=== PATIENT | male | born 1960 | race Caucasian/White ===

== ENCOUNTER 2017-11-04 08:40 | Emergency (ER) | payer OTHER ==
[2017-11-04 08:48] VITALS: BP 122/70; PULSE 70; TEMP 97.9; BMI 17.9
[2017-11-04] MEDS ORDERED: ONDANSETRON *ODT* 4 MG TABLET SL ONE (09:22)
[2017-11-04] MEDS ORDERED: ONDANSETRON *ODT* 4 MG TABLET ONE (09:27)
--- NOTE | 2017-11-04 10:20 | PDOC ---
History of Present Illness - General Chief Complaint: Respiratory Stated Complaint: HEADACHE, DIARRHEA Time Seen by Provider: 11/04/17 09:13 History Source: Patient Exam Limitations: No Limitations - History of Present Illness Initial Comments: 11/04/17 10:20 Patient is a 57-year-old male, no significant medical history currently on no medication presents for evaluation of generalized bodyaches, sore throat, fever , vomiting and diarrhea for 4 days. Patient reports getting a flu shot on and Wednesday started to have symptoms. Took Advil this morning. Afebrile upon arrival. Past Medical History: [Denies]. Allergies: No known allergies Medications: [None] Family History: Non-contributory Social History: Denies smoking, alcohol use, or IVDU Vital signs on arrival are [notable for pulse of 70] Review of Systems GENERAL/CONSTITUTIONAL: [Fever and bodyaches. No weakness. No weight change.] HEAD, EYES, EARS, NOSE AND THROAT: [No change in vision. No ear pain or discharge. Sore throat. ] CARDIOVASCULAR: [No chest pain or shortness of breath.] RESPIRATORY: [No cough, wheezing, or hemoptysis.] GASTROINTESTINAL: Nausea and vomiting, diarrhea no constipation. No rectal bleeding.] GENITOURINARY: [No dysuria, frequency, or change in urination.] MUSCULOSKELETAL: [No joint or muscle swelling or pain. No neck or back pain.] SKIN : [No rash or easy bruising.] NEUROLOGIC: [No headache, vertigo, loss of consciousness, or loss of sensation.] PSYCHIATRIC: [No depression or anxiety.] ENDOCRINE: [No increased thirst. No abnormal weight change.] HEMATOLOGIC/LYMPHATIC: [No anemia, easy bleeding, or history of blood clots.] ALLERGIC/IMMUNOLOGIC: [No hives or skin allergy. No latex allergy.] Physical Exam: GENERAL: [The patient is awake, alert, and fully oriented, in no acute distress. ] HEAD: [Normal with no signs of trauma.] EYES: [Pupils equal, round and reactive to light, extraocular movements intact, sclera anicteric, conjunctiva clear.] ENT: [Ears normal, nares patent, oropharynx clear without exudates. Moist mucous membranes. No uvula deviation] NECK: [Normal range of motion, supple without lymphadenopathy, JVD, or masses.] LUNGS: [Breath sounds equal, clear to auscultation bilaterally. No wheezes, and no crackles.] HEART: [Regular rate and rhythm, normal S1 and S2 without murmur, rub or gallop. ] ABDOMEN: [Soft, nontender, normoactive bowel sounds. No guarding, no rebound. No masses. No bruising or abrasions] MUSCULOSKELETAL: [Normal range of motion, no edema. No clubbing or cyanosis. No cords, erythema, or tenderness. No CVA Tenderness with fist.] NEUROLOGICAL: [Cranial nerves II through XII grossly intact. Normal speech, normal gait.] SKIN: [Warm, Dry, normal turgor, no rashes or lesions noted.] 11/04/17 10:21 Past History - Past Medical History Allergies/Adverse Reactions: Allergies Allergy/AdvReac Type Severity Reaction Status Date / Time No Known Drug Allergies Allergy Verified 11/04/17 08:45 Home Medications: Ambulatory Orders Albuterol Sulfate Inhaler - [Ventolin HFA Inhaler -] 1 inh PO DAILY PRN Quetiapine Fumarate [Seroquel -] 200 mg PO HS 10/05/13 Oxycodone HCl 1 tab PO PRN PRN 05/04/16 Ondansetron [Zofran Odt -] 4 mg SL TID #14 od.tablet 11/04/17 Asthma: Yes (NO RECENT ATTACK) COPD: No GI Disorders: Yes (hepatitis C) Disorders: Yes (kidney stones) Kidney Stones: Yes Liver Disease: Yes (HEP C) Psychiatric Problems: Yes (DEPRESSION) - Immunization History Immunization Up to Date: Yes - Suicide/Smoking/Psychosocial Hx Smoking Status: Yes Smoking History: Current every day smoker Years of Tobacco Use: 40 Have you smoked in the past 12 months: Yes Number of Cigarettes Smoked Daily: 10 Information on smoking cessation initiated: Yes 'Breaking Loose' booklet given: 11/04/17 Hx Alcohol Use: No Drug/Substance Use Hx: Yes Substance Use Type: Marijuana Hx Substance Use Treatment: Yes *Physical Exam - Vital Signs Last Vital Signs Temp Pulse Resp BP Pulse Ox 97.9 F 70 18 122/70 97 11/04/17 08:45 11/04/17 08:45 11/04/17 08:45 11/04/17 08:45 11/04/17 08:45 ED Treatment Course - Medications Given in the ED: ED Medications Discontinued Medications Generic Name Dose Route Start Last Admin Trade Name Sofie PRN Reason Stop Dose Admin Ondansetron HCl 4 mg 11/04/17 09:22 11/04/17 09:33 Zofran Odt - SL 11/04/17 09:23 4 mg ONCE ONE Administration Medical Decision Making - Medical Decision Making 11/04/17 10:22 A/P: Patient with influenza-type illness. Rapid strep sent, Zofran given with good result patient is eating and drinking. 11/04/17 10:27 Rapid strep is negative we'll DC patient home, supportive care, increase fluid intake, if unable to eat and drink chest pain, dizziness, fainting, or any other concerns return to ER. *DC/Admit/Observation/Transfer Diagnosis at time of Disposition: Influenza-like illness - Discharge Dispostion Disposition: HOME Condition at time of disposition: Stable Admit: No - Prescriptions Prescriptions: Ondansetron [Zofran Odt -] 4 mg SL TID #14 od.tablet - Referrals Referrals: Mayo Gonzalez MD [Staff Physician] - - Patient Instructions Additional Instructions: You have been diagnosed with influenza-like illness. Please take the medication as directed for nausea. You are contagious. Please attempt to avoid contact of multiple individuals as this will cause the infection to spread. Return to emergency room if shortness of breath, wheezing, fever greater than 101, chest pain, or fainting occurs. If symptoms persist in 3 days please follow-up with primary care doctor. - Post Discharge Activity Forms/Work/School Notes: Back to Work
== END 2017-11-04 10:32 | disposition home or self-care (01) ==
LOC: JERFT 08:40
DX: J11.1 Influenza due to unidentified influenza virus with other respiratory manifestations (principal); Z87.442 Personal history of urinary calculi; Z87.09 Personal history of other diseases of the respiratory system
CPT/HCPCS: 87070; 87430; 99281-25

== ENCOUNTER 2018-11-19 10:52 | Emergency (ER) | payer OTHER ==
[2018-11-19 11:05] VITALS: BMI 23.3
--- NOTE | 2018-11-19 12:08 | PDOC ---
History of Present Illness - General Chief Complaint: Pain, Acute Stated Complaint: BACK PAIN Time Seen by Provider: 11/19/18 11:52 - History of Present Illness Initial Comments: The pt is a 58M w/ a history of HCV, chronic back pain, kidney stones who presents for evaluation of 1wk of back pain, dysuria, and fevers. He reports that his pain feels similar to previous occurrences of kidney stones in the past. His pain is intermittent mid-lower back, b/l, will radiate to his flanks ( R > L), and is associated with subjective fevers and dysuria. He endorses associated NBNB vomiting x2 yesterday and x1 today. Denies diarrhea, blood in stool, abdominal pain, chest pain, trouble breathing. Of note pt reports receiving injections in his back for chronic pain, last was 11/19/18 12:08 Past History - Past Medical History Allergies/Adverse Reactions: Allergies Allergy/AdvReac Type Severity Reaction Status Date / Time No Known Drug Allergies Allergy Verified 11/19/18 11:02 Home Medications: Ambulatory Orders Albuterol Sulfate Inhaler - [Ventolin HFA Inhaler -] 1 inh PO DAILY PRN Oxycodone HCl 1 tab PO PRN PRN 05/04/16 Asthma: Yes (NO RECENT ATTACK) COPD: No GI Disorders: Yes (hepatitis C) Disorders: Yes (kidney stones) Kidney Stones: Yes Liver Disease: Yes (HEP C) Psychiatric Problems: Yes (DEPRESSION) - Immunization History Immunization Up to Date: Yes - Suicide/Smoking/Psychosocial Hx Smoking Status: Yes Smoking History: Current every day smoker Years of Tobacco Use: 40 Have you smoked in the past 12 months: Yes Number of Cigarettes Smoked Daily: 10 Information on smoking cessation initiated: No 'Breaking Loose' booklet given: 11/04/17 Hx Alcohol Use: No Drug/Substance Use Hx: No Substance Use Type: Marijuana Hx Substance Use Treatment: Yes Review of Systems - Review of Systems Able to Perform ROS?: Yes Comments:: GENERAL/CONSTITUTIONAL: No weakness HEAD, EYES, EARS, NOSE AND THROAT: No change in vision. No sore throat CARDIOVASCULAR: No chest pain or shortness of breath RESPIRATORY: +cough; denies hemoptysis GASTROINTESTINAL: No nausea, vomiting, diarrhea or constipation GENITOURINARY: +dysuria; denies hematuria, frequency, or change in urination MUSCULOSKELETAL: No joint or muscle swelling or pain SKIN: No rash NEUROLOGIC: No headache, vertigo, loss of consciousness, or change in strength/ sensation ENDOCRINE: No increased thirst. No abnormal weight change HEMATOLOGIC/LYMPHATIC: No anemia, easy bleeding, or history of blood clots ALLERGIC/IMMUNOLOGIC: No hives or skin allergy 11/19/18 12:29 Is the patient limited Dominican proficient: No *Physical Exam - Vital Signs Last Vital Signs Temp Pulse Resp BP Pulse Ox 98.3 F 83 18 90/64 96 11/19/18 11:02 11/19/18 11:02 11/19/18 11:02 11/19/18 11:02 11/19/18 11:02 - Physical Exam Comments: GENERAL: Awake, alert, and oriented to person/place/time, appears uncomfortable HEAD: No signs of trauma, normocephalic, atraumatic EYES: PERRLA, EOMI, sclera anicteric, conjunctiva clear ENT: Hearing grossly normal, nares patent, oropharynx clear without exudates. Moist mucosa LUNGS: No distress, speaks full sentences, clear to auscultation bilaterally HEART: Regular rate and rhythm, normal S1 and S2, no murmurs appreciated, peripheral pulses normal and equal bilaterally BACK: R lower back TTP ABDOMEN: Soft, nontender, normoactive bowel sounds. No guarding, no rebound EXTREMITIES: Normal inspection, Normal range of motion, no edema. No clubbing or cyanosis NEUROLOGICAL: Cranial nerves II through XII grossly intact. Normal speech, no focal sensorimotor deficits SKIN: Warm, Dry, back/neck flushed 11/19/18 12:38 Moderate Sedation - Procedure Monitoring Vital Signs: Procedure Monitoring Vital Signs Temperature 98.3 F 11/19/18 11:02 Pulse Rate 83 11/19/18 11:02 Respiratory Rate 18 11/19/18 11:02 Blood Pressure 90/64 11/19/18 11:02 O2 Sat by Pulse Oximetry (%) 96 11/19/18 11:02 ED Treatment Course - LABORATORY CBC & Chemistry Diagram: 11/19/18 12:20 11/19/18 12:20 Medical Decision Making - Medical Decision Making The pt is a 58M w/ a history of HCV and chronic back pain that presents for evaluation of 1 week of lower back pain that he reports is similar to previous episodes of nephrolithiasis but also the same as his chronic back pain ED Course CMP, CBC, UA Lytes wnl No SEBASTIAN No leukocytosis No anemia UA w/o blood or evidence of UTI Pending CT A&P 11/19/18 14:35 CT w/o evidence of acute pathology Pain likely exacerbation of chronic back pain Trigger point injection of 4cc of 2% Lidocaine performed in R lumbar paraspinal muscle 11/19/18 17:40 Pt w/ improvement in pain Plan for D/C w/ pain management f/u Discharge instructions and return precautions given Pt in agreement and verbalized understanding Dispo: home 11/19/18 18:28 *DC/Admit/Observation/Transfer Diagnosis at time of Disposition: Back pain Qualifiers: Back pain location: low back pain Chronicity: unspecified Back pain laterality : bilateral Sciatica presence: without sciatica Qualified Code(s): M54.5 - Low back pain - Discharge Dispostion Disposition: HOME Condition at time of disposition: Improved Decision to Admit order: No - Referrals Referrals: Ag Campoverde MD [Staff Physician] - - Patient Instructions Printed Discharge Instructions: DI for Low Back Pain Additional Instructions: You were seen in the Emergency Department for evaluation of back pain. Your labs , urine, and CT scan were unremarkable to for acute pathology. You were given Toradol initially for pain. You were then given a trigger point injection of Lidocaine in the right lumbar paraspinal muscle. Continue to take you medications as directed at home. Please review the handout provided with discharge. Follow up with your pain management doctor this week. Return to the Emergency Department if you develop fevers/chills, vomiting, change in sensation, change in strength, or any new/ concerning symptoms. - Post Discharge Activity
[2018-11-19] MEDS ORDERED: KETOROLAC TROMETHAMINE 15 MG/ML VIAL IVPUSH ONE (12:10)
[2018-11-19] MEDS ORDERED: KETOROLAC TROMETHAMINE 15 MG/ML VIAL ONE (12:19)
--- NOTE | 2018-11-19 12:41 | PDOC ---
Attending Attestation - Resident Resident Name: MicOttoniel monroy - ED Attending Attestation I have performed the following: I have examined & evaluated the patient, The case was reviewed & discussed with the resident, I agree w/resident's findings & plan, Exceptions are as noted - HPI HPI: 11/19/18 12:38 58y M hx of hcv, chronic back pain, kiudney stones presents with complaint of worsening back pain that feels similar to previous kidney stones, but notes it is bilateral, worsens when he walks, is intermittent and does not seem present when he is at rest. Pt notes he follows up with pain mangement, had a recent injection approx 13 days ago in the back. denies any cp, sob, numbness/tingling /weakness. He does note some dysuria and subjective fever. on exam: general: pt appears to be uncomfortable skin: hot to the touch BACK: no focal bony tenderness, induration/erythhema, stepoffs, +mild ttp on R lumbar parasimpal region. +R cva tenderness ABD: sfot nontender chest: cta b/l, no wheezing/rales heart: rrr, no mrg ddx - msk pain vs kidney stones, consider possible occult ifnection will ck labs, ua aweaiting rectal temp as pt feels warm but is afebrile at triage - Physicial Exam PE: 11/19/18 18:21 see above - Medical Decision Making 11/19/18 14:24 The patient's labs were reviewed there was no leukocytosis, CKD the patient's urine is noted for ketonuria and proteinuria. suspect ketonruia ay be secondary to dehydration not having eaten recently/ overnight will give the patient some fluids. 11/19/18 18:21 The patient was still having persistent pain that was focal, we performed a trigger point injection. Patient right paraspinal lumbar muscles were focally tender the area was cleansed using alcohol, 4 mL of 2% lidocaine was injected into the lumbar paraspinal muscle with aspiration without any signs of blood. After approximately 45 minutes the patient is feeling significantly improved. No complications noted. As the patient is feeling improved will discharge patient with pain management supportive correction.
[2018-11-19 12:42] LABS: BASO % 0.9 % (0-2.0); EOS % 0.4 % (0-4.5); HEMATOCRIT 41.8 % (35.4-49); HEMOGLOBIN 14.8 GM/dL (11.7-16.9); LYMPH % 29.7 % (8-40); MCH 32.2 pg (25.7-33.7); MCHC 35.5 g/dl (32.0-35.9); MEAN CELL VOLUME 90.5 fl (80-96); MEAN PLT VOLUME 9.1 fl (7.5-11.1); MONO % 8.4 % (3.8-10.2); NEUT % 60.6 % (42.8-82.8); PLATELET COUNT 114 K/MM3 (134-434); RBC 4.62 M/mm3 (4.00-5.60); WHITE BLOOD COUNT 5.9 K/mm3 (4.0-10.0)
[2018-11-19 13:21] LABS: ALBUMIN 3.3 g/dl (3.4-5.0); ALK PHOS 85 U/L (45-117); ANION GAP 10 MMOL/L (8-16); BILIRUBIN,TOTAL 0.5 mg/dL (0.2-1); BLOOD UREA NITROGEN 16 mg/dL (7-18); CALCIUM 7.9 mg/dL (8.5-10.1); CHLORIDE 104 mmol/L (98-107); CO2 22 mmol/L (21-32); CREATININE 0.7 mg/dL (0.55-1.3); GLUCOSE,RANDOM 91 mg/dL (74-106); POTASSIUM 3.6 mmol/L (3.5-5.1); SGOT/AST 27 U/L (15-37); SGPT/ALT 40 U/L (13-61); SODIUM 137 mmol/L (136-145); TOT PROT 6.5 g/dl (6.4-8.2)
[2018-11-19 14:05] LABS: URINE APPEARANCE SLCLOUDY; URINE BILIRUBIN NEGATIVE (<2.0 mg/dL); URINE COLOR DKYELLOW; URINE GLUCOSE (UA) NEGATIVE (NEGATIVE); URINE KETONE 1+ (NEGATIVE); URINE LEUK ESTERASE NEGATIVE (NEGATIVE); URINE NITRITE NEGATIVE (NEGATIVE); URINE PROTEIN 1+ (NEGATIVE); URINE UROBILINOGEN 4.0 E.U/dl mg/dL (0.2-1.0)
[2018-11-19] MEDS ORDERED: SODIUM CHLORIDE 0.9% 500 ML INFUS.BAG IV ONE (14:23)
[2018-11-19 14:51] LABS: EPI CELLS RARE /HPF (FEW); URINE MUCUS FEW
[2018-11-19 16:43] VITALS: BP 118/70; PULSE 69; TEMP 99
[2018-11-19] MEDS ORDERED: LIDOCAINE HCL 1%, 10 MG/ML (50 mL VIAL) SQ ONE (17:11)
== END 2018-11-19 18:38 | disposition home or self-care (01) ==
LOC: JER 10:52
PROC: 3E0333Z Introduction of Anti-inflammatory into Peripheral Vein, Percutaneous Approach (ICD-10-PCS; principal; 2018-11-19)
PROC: 3E013BZ Introduction of Anesthetic Agent into Subcutaneous Tissue, Percutaneous Approach (ICD-10-PCS; 2018-11-19)
DX: M54.5 Low back pain (principal); Z87.442 Personal history of urinary calculi; Z86.19 Personal history of other infectious and parasitic diseases; F32.9 Major depressive disorder, single episode, unspecified
CPT/HCPCS: 36415; 74177-TC; 80053; 81003; 81015; 85025; 87086; 96372; 96374; 99282-25

== ENCOUNTER 2018-12-17 09:49 | Emergency (ER) | payer OTHER ==
[2018-12-17 10:02] VITALS: BMI 25.4
[2018-12-17] MEDS ORDERED: KETOROLAC TROMETHAMINE 60 MG/2 ML VIAL IM ONE (10:19)
[2018-12-17] MEDS ORDERED: oxyCODONE HCL 5 MG TABLET PO ONE (10:19)
[2018-12-17] MEDS ORDERED: CYCLOBENZAPRINE HCL 10 MG TABLET (FP) PO ONE (10:19)
[2018-12-17] MEDS ORDERED: oxyCODONE HCL 5 MG TABLET ONE (10:25)
[2018-12-17] MEDS ORDERED: KETOROLAC TROMETHAMINE 60 MG/2 ML VIAL ONE (10:26)
[2018-12-17] MEDS ORDERED: CYCLOBENZAPRINE HCL 10 MG TABLET (FP) ONE (10:26)
--- NOTE | 2018-12-17 10:39 | PDOC ---
*Physical Exam - Vital Signs Last Vital Signs Temp Pulse Resp BP Pulse Ox 98 F 67 17 113/67 98 12/17/18 09:57 12/17/18 09:57 12/17/18 09:57 12/17/18 09:57 12/17/18 09:57 ED Treatment Course - Medications Given in the ED: ED Medications Discontinued Medications Generic Name Dose Route Start Last Admin Trade Name Freq PRN Reason Stop Dose Admin Cyclobenzaprine HCl 5 mg 12/17/18 10:19 12/17/18 10:33 Flexeril - PO 12/17/18 10:20 5 mg ONCE ONE Administration Ketorolac Tromethamine 60 mg 12/17/18 10:19 12/17/18 10:34 Toradol Injection - IM 12/17/18 10:20 60 mg ONCE ONE Administration Oxycodone HCl 10 mg 12/17/18 10:19 12/17/18 10:33 Roxicodone - PO 12/17/18 10:20 10 mg ONCE ONE Administration Medical Decision Making - Medical Decision Making 12/17/18 10:38 Pt seen by the Advanced Practice Provider under my direct supervision Ancillary studies reviewed I agree with plan as outlined by the Advanced Practice Provider MARQUISE Taylor *DC/Admit/Observation/Transfer Diagnosis at time of Disposition: Sciatic nerve pain, Lumbar disc herniation - Discharge Dispostion Disposition: HOME Condition at time of disposition: Improved - Prescriptions Prescriptions: Cyclobenzaprine HCl [Flexeril -] 5 mg PO TID PRN #12 tablet PRN Reason: Back Pain - Referrals Referrals: Juan Antonio Orellana MD, [facility] [Staff Physician] - - Patient Instructions Printed Discharge Instructions: DI for Back Pain With Sciatica Additional Instructions: Please avoid movements which trigger discomfort. Please take medication as needed for pain. Also please follow up with referred neurosurgeon - Post Discharge Activity
--- NOTE | 2018-12-17 10:43 | PDOC ---
History of Present Illness - General Chief Complaint: Back Pain Stated Complaint: BACK PAIN Time Seen by Provider: 12/17/18 09:55 History Source: Patient Exam Limitations: No Limitations - History of Present Illness Initial Comments: 12/17/18 10:43 58-year-old male with history of low back pain and hepatitis C presents with complaints of worsening low back pain causing him difficulty to ambulate since last evening. Patient states has had worsening low back pain over the past year and a half now under the care of pain management who had ordered physical therapy and have began on Wednesday which he states consisted of multiple movements including "cracking the back." Patient states within one hour after arriving home he was unable to walk to the bathroom without holding onto furniture items. Patient denies incontinence, saddle anesthesia, abdominal pain weakness or numbness of the right lower extremity. Patient states had an MRI done on December 08 which showed L4-L5 herniation along with nerve root impingement. Patient is pending a neurology consultation by Dr. Pennington in 2 weeks. Occurred: reports: yesterday Severity: reports: moderate Pain Location: reports: back, lower extremity Method of Injury: Yes: unknown Modifying Factors: improves with: None Associated Symptoms (Fall): muscle spasms, trouble walking Past History - Travel Traveled outside of the country in the last 30 days: No Close contact w/someone who was outside of country & ill: No - Past Medical History Allergies/Adverse Reactions: Allergies Allergy/AdvReac Type Severity Reaction Status Date / Time No Known Drug Allergies Allergy Verified 12/17/18 09:57 Home Medications: Ambulatory Orders Albuterol Sulfate Inhaler - [Ventolin HFA Inhaler -] 1 inh PO DAILY PRN Oxycodone HCl 10 tab PO TID PRN 05/04/16 Baclofen [Lioresal -] 10 mg PO TID 12/17/18 Cyclobenzaprine HCl [Flexeril -] 5 mg PO TID PRN #12 tablet 12/17/18 Duloxetine HCl [Cymbalta -] 20 mg PO DAILY 12/17/18 Asthma: Yes (NO RECENT ATTACK) COPD: No GI Disorders: Yes (hepatitis C) Disorders: Yes (kidney stones) Kidney Stones: Yes Liver Disease: Yes (HEP C) Psychiatric Problems: Yes (DEPRESSION) - Immunization History Immunization Up to Date: Yes - Suicide/Smoking/Psychosocial Hx Smoking Status: Yes Smoking History: Unknown if ever smoked Years of Tobacco Use: 40 Have you smoked in the past 12 months: Yes Number of Cigarettes Smoked Daily: 10 'Breaking Loose' booklet given: 11/04/17 Hx Alcohol Use: No Drug/Substance Use Hx: No Substance Use Type: Marijuana Hx Substance Use Treatment: Yes Patient Lives Alone: No Lives with/in: parents (mother) Review of Systems - Review of Systems Able to Perform ROS?: No Is the patient limited Malagasy proficient: No Constitutional: No: Symptoms Reported Respiratory: No: Symptoms reported Cardiac (ROS): No: Symptoms Reported ABD/GI: No: Symptoms Reported Musculoskeletal: Yes: Back Pain, Muscle Pain Integumentary: No: Symptoms Reported Neurological: No: Numbness, Tingling, Weakness *Physical Exam - Vital Signs Last Vital Signs Temp Pulse Resp BP Pulse Ox 98 F 67 17 113/67 98 12/17/18 09:57 12/17/18 09:57 12/17/18 09:57 12/17/18 09:57 12/17/18 09:57 - Physical Exam General Appearance: Yes: Nourished, Appropriately Dressed. No: Apparent Distress Neck: positive: Supple. negative: Tender, Decreased range of motion Respiratory/Chest: positive: Lungs Clear, Normal Breath Sounds. negative: Chest Tender, Respiratory Distress, Accessory Muscle Use Musculoskeletal: negative: CVA Tenderness, Vertebral Tenderness (no central tenderness, noted rt paraspinous tenderness at l-5 level. + rt sciatica tenderness) Extremity: positive: Normal Inspection, Normal Range of Motion Integumentary: positive: Normal Color, Warm, Moist Neurologic: positive: Motor Strength 5/5 (straight leg raise bilaterally) ED Treatment Course - Medications Given in the ED: ED Medications Discontinued Medications Generic Name Dose Route Start Last Admin Trade Name Freq PRN Reason Stop Dose Admin Cyclobenzaprine HCl 5 mg 12/17/18 10:12/17/18 10:33 Flexeril - PO 12/17/18 10:20 5 mg ONCE ONE Administration Ketorolac Tromethamine 60 mg 12/17/18 10:12/17/18 10:34 Toradol Injection - IM 12/17/18 10:20 60 mg ONCE ONE Administration Oxycodone HCl 10 mg 12/17/18 10:12/17/18 10:33 Roxicodone - PO 12/17/18 10:20 10 mg ONCE ONE Administration Medical Decision Making - Medical Decision Making 12/17/18 10:45 CC: rt low back pain x 1 year, started PT wednesday, now unable to ambulate independently wihtout extreme pain to rt buttock/ rt lower back Exam: rt sciatica and rt lumbar paraspinous tenderness, no neurofocal deficits Plan: Toradol, flexeril, and reg scheduled dose of oxy 12/17/18 11:33 Pt moderately feeling better and was able to ambulate with the canes. *DC/Admit/Observation/Transfer Diagnosis at time of Disposition: Sciatic nerve pain, Lumbar disc herniation - Discharge Dispostion Disposition: HOME Condition at time of disposition: Improved - Prescriptions Prescriptions: Cyclobenzaprine HCl [Flexeril -] 5 mg PO TID PRN #12 tablet PRN Reason: Back Pain - Referrals Referrals: Juan Antonio Orellana MD, [facility] [Staff Physician] - - Patient Instructions Printed Discharge Instructions: DI for Back Pain With Sciatica Additional Instructions: Please avoid movements which trigger discomfort. Please take medication as needed for pain. Also please follow up with referred neurosurgeon - Post Discharge Activity
[2018-12-17 12:42] VITALS: BP 115/62; PULSE 63; TEMP 97.6
== END 2018-12-17 12:42 | disposition home or self-care (01) ==
LOC: JER 09:49
PROC: 3E0233Z Introduction of Anti-inflammatory into Muscle, Percutaneous Approach (ICD-10-PCS; principal; 2018-12-17)
DX: M51.16 Intervertebral disc disorders with radiculopathy, lumbar region (principal)
CPT/HCPCS: 96372; 99282-25

== ENCOUNTER 2018-12-26 09:47 | Inpatient (IN) | payer OTHER ==
[2018-12-26] MEDS ORDERED: morphine CARPU-JECT 4 MG/1 ML DISP.SYRIN IVPUSH ONE (10:37)
[2018-12-26] MEDS ORDERED: LIDOCAINE 5% TOPICAL PATCH TP ONE (10:37)
[2018-12-26] MEDS ORDERED: KETOROLAC TROMETHAMINE 15 MG/ML VIAL IVPUSH ONE (10:37)
[2018-12-26] MEDS ORDERED: morphine SULFATE 4 MG/ML VIAL ONE (10:40)
[2018-12-26] MEDS ORDERED: LIDOCAINE 5% TOPICAL PATCH ONE (10:40)
[2018-12-26] MEDS ORDERED: KETOROLAC TROMETHAMINE 15 MG/ML VIAL ONE (10:40)
--- NOTE | 2018-12-26 10:45 | PDOC ---
History of Present Illness - General Chief Complaint: Back Pain Stated Complaint: BACK PAIN Time Seen by Provider: 12/26/18 10:04 History Source: Patient Exam Limitations: No Limitations - History of Present Illness Initial Comments: 12/26/18 10:45 HPI 58-year-old male with history of low back pain 2/2 L4-5 lumbar disc herniation with sciatica, kidney stones, hepatitis C, asthma presents with complaints of worsening low back pain causing him difficulty to ambulate x 2 months. He has had several ED visits for back pain, has been with pain management, PT and chiropractor use, without improvement. His last chiropractic manipulation on 08/24, after that has had worsening right sided lower back pain with radiation of sharp pains down his leg and difficulty ambulating. His pain specialist rxd him oxycodone 10mg PRN, which he finished taking 2 days ago. Patient admits to some difficulty walking and urinary hesitancy, but no retention, dysuria, frequency. He denies incontinence, saddle anesthesia, abdominal pain weakness or numbness of the right lower extremity. Last MRI done on December 08 which showed L4-L5 herniation along with nerve root impingement. Today He went to Dr Ovalle office today, in acute pain, referred to the ED for eval and admission, MRI imaging and planning for NSG intervention tomorrow for his lumbar disc herniation at L4-5, refractory to conservative management. Allergies: None Past Medical History: see HPI Social history: +tobacco use. Surgical history: none Meds: as documented in EMR PMD: none Review of systems Constitutional: no fevers or chills. HEENT: no headache or dizziness. No visual/hearing disturbances. CVS: no cp or syncope. Resp: no sob. Gastrointestinal: no abdominal pain, nausea or vomiting. Genitourinary: no dysuria, hematuria. +Urinary hesitancy, no retention MUSCULOSKELETAL: No joint pain and swelling. +back and buttock pain SKIN: no redness or skin changes, no discharge, no rash. No wounds. Hematologic: no easy bruising/bleeding. NEUROLOGIC: No headache, dizziness, LOC or altered mental status. No weakness, numbness or tingling. Psych: no anxiety or depression Allergic/Immunologic: no allergies All other systems reviewed and negative, or as documented in HPI. Physical exam: General: in mild distress 2/2 pain, older than stated age. HEENT: NCAT, PERRL, EOMI, clear conjunctiva, anicteric, clear oropharynx, poor dentition Neck: neck supple, FROM Resp: CTAB, normal and even respirations, no respiratory distress CVS: RRR, no murmurs, 2+ peripheral pulses throughout, no peripheral edema Abdomen: soft, NTND, no peritoneal signs. Back: normal inspection, ROM limited 2/2 pain. No midline spinal tenderness + right paravertebral and sacral TTP MSK: no edema, ARRIAGA x4, ROM intact. normal bulk and tone. +bilateral SLR present.. 1+ patellar reflexes bilaterally Neuro: alert, no focal neuro deficits. 5/5 plantar and dorsiflexion bilaterally , SILT in L1-S1 distribution. Skin: warm and well perfused, cap refill <2 sec, normal color 12/26/18 10:59 Past History - Past Medical History Allergies/Adverse Reactions: Allergies Allergy/AdvReac Type Severity Reaction Status Date / Time No Known Drug Allergies Allergy Verified 12/26/18 10:00 Home Medications: Ambulatory Orders Albuterol Sulfate Inhaler - [Ventolin HFA Inhaler -] 1 inh PO DAILY PRN Oxycodone HCl 10 tab PO TID PRN 05/04/16 Baclofen [Lioresal -] 10 mg PO TID 12/17/18 Cyclobenzaprine HCl [Flexeril -] 5 mg PO TID PRN #12 tablet 12/17/18 Duloxetine HCl [Cymbalta -] 20 mg PO DAILY 12/17/18 Asthma: Yes (NO RECENT ATTACK) COPD: No GI Disorders: Yes (hepatitis C) Disorders: Yes (kidney stones) Kidney Stones: Yes Liver Disease: Yes (HEP C) Psychiatric Problems: Yes (DEPRESSION) - Immunization History Immunization Up to Date: Yes - Suicide/Smoking/Psychosocial Hx Smoking Status: Yes Smoking History: Former smoker Years of Tobacco Use: 40 Have you smoked in the past 12 months: No Number of Cigarettes Smoked Daily: 10 Information on smoking cessation initiated: No 'Breaking Loose' booklet given: 11/04/17 Hx Alcohol Use: No Drug/Substance Use Hx: No Substance Use Type: Marijuana Hx Substance Use Treatment: Yes *Physical Exam - Vital Signs Last Vital Signs Temp Pulse Resp BP Pulse Ox 98.3 F 86 18 118/82 99 12/26/18 09:56 12/26/18 09:56 12/26/18 09:56 12/26/18 09:56 12/26/18 09:56 ED Treatment Course - LABORATORY CBC & Chemistry Diagram: 12/26/18 10:47 12/26/18 10:47 Medical Decision Making - Medical Decision Making 12/26/18 10:46 hpi as documented VS reviewed, wnl. DDx back pain: back strain, lumbago, sciatica, radiculopathy, spinal stenosis. Muscle spasm. Lumbar radiculopathy. pt does have e/o positive SLR bilaterally, c/w sciatica, but no neuro deficits or changes. Clinically doubt based on exam and clinical history: cord compression or cauda equina, however + lumbar/spinal procedures with chiropractic manipulation and known severe L4-5 disc herniation and nerve root impingement. otherwise no bowel and bladder incontinence/retention, urinary sx, neurologic deficits or changes. ED course: - txs, preop labs, ESR/CRP - wnl - analgesia, topical lido, morphine and toradol, with some improvement. - spoke with NSG, Dr Mendoza, MRI imaging protocol - possible NSG intervention tomorrow, med clearance - admit to Dr Johns, hospitalist team per request of NSG. 12/26/18 10:48 12/26/18 12:33 *DC/Admit/Observation/Transfer Diagnosis at time of Disposition: Back pain, Lumbar disc disease with radiculopathy - Discharge Dispostion Condition at time of disposition: Guarded Decision to Admit order: Yes Decision to Admit order Date/Time: 12/26/18 10:59 Decision to Admit Order Category Date Time Status Decision to Admit to Hospital Routine Admission 12/26/18 10:58 Ordered - Referrals - Patient Instructions - Post Discharge Activity
[2018-12-26 10:59] LABS: BASO % 1.4 % (0-2.0); EOS % 2.8 % (0-4.5); HEMATOCRIT 44.6 % (35.4-49); HEMOGLOBIN 15.3 GM/dL (11.7-16.9); LYMPH % 34.4 % (8-40); MCH 31.3 pg (25.7-33.7); MCHC 34.2 g/dl (32.0-35.9); MEAN CELL VOLUME 91.4 fl (80-96); MEAN PLT VOLUME 9.5 fl (7.5-11.1); MONO % 6.8 % (3.8-10.2); NEUT % 54.6 % (42.8-82.8); PLATELET COUNT 154 K/MM3 (134-434); RBC 4.88 M/mm3 (4.00-5.60); RDW 14.3 % (11.9-15.9); WHITE BLOOD COUNT 7.6 K/mm3 (4.0-10.0)
[2018-12-26 11:26] LABS: INR 1.08 (0.83-1.09); PROTHROMBIN TIME (PATIENT) 12.7 SEC (9.7-13.0)
[2018-12-26 11:34] LABS: ALBUMIN 3.7 g/dl (3.4-5.0); ALK PHOS 105 U/L (45-117); ANION GAP 4 MMOL/L (8-16); BILIRUBIN,TOTAL 0.8 mg/dL (0.2-1); BLOOD UREA NITROGEN 9 mg/dL (7-18); CHLORIDE 110 mmol/L (98-107); CO2 27 mmol/L (21-32); CREATININE 0.6 mg/dL (0.55-1.3); GLUCOSE,RANDOM 106 mg/dL (74-106); POTASSIUM 4.1 mmol/L (3.5-5.1); SGOT/AST 53 U/L (15-37); SGPT/ALT 77 U/L (13-61); SODIUM 141 mmol/L (136-145); TOT PROT 7.2 g/dl (6.4-8.2)
[2018-12-26] MEDS ORDERED: ALBUTEROL SO4 2.5/IPRATROPIUM 0.5 INH SOL 3 ML VIAL.NEB. NEB PRN (14:21)
[2018-12-26] MEDS ORDERED: oxyCODONE HCL 5 MG TABLET PO PRN ×2 (14:22→15:14)
[2018-12-26] MEDS ORDERED: CYCLOBENZAPRINE HCL 10 MG TABLET (FP) PO PRN (14:22)
[2018-12-26] MEDS ORDERED: ALBUTEROL SO4 8 GM HFA INHALER IH PRN (14:22)
[2018-12-26] MEDS ORDERED: morphine SULFATE 4 MG/ML VIAL IVPUSH PRN (14:24)
[2018-12-26] MEDS ORDERED: DICLOFENAC SODIUM PO SCH (14:30)
--- NOTE | 2018-12-26 14:46 | HP ---
CHIEF COMPLAINT: worsening low back pain PCP:none Pain mgt: Dr. Ag Guardado HISTORY OF PRESENT ILLNESS: Patient is a 58 year old male with past medical history of chronic low back pain , kidney stones, hepatitis C, and emphysema, presented to the ED due to worsening low back pain accompanied by weakness and pain with ambulating that started last month. Patient is known to have chronic low back pain, with lumbar disc herniation, and has been on disability since early . Symptoms have been controlled by pain management and physical therapy, and he has been on Oxycodone. About 1 1/2 months ago, patient woke up and suddenly experienced severe 10/10 sharp low back pain. He denies trauma or lifting heavy objects. About a week after, because of the pain, patient started to walk on his toes as stepping on his heel was painful. He has been seen in the ED multiple times for the low back pain, where pain was controlled and patient referred to neurology and neurosurgery. About 10 days ago, patient saw a chiropractor where a certain manipulation was done which resulted to a worsening of the low back pain accompanied by pain and weakness radiating down his right leg. Because of the pain, patient has been increasing his dose of oxycodone taking 5 tablets in a day. Today, he was seen by neurosurgery, who recommended admission for possible surgery tomorrow. Patient also reports shortness of breath when walking 4-5 blocks, but has been present for a long time since he was diagnosed of emphysema. He denies fever, chills, headache, dizziness, chest pain, palpitations, abdominal pain, diarrhea, bowel or bladder incontinence. 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 Patient on disability, lives with mother Family History: Mother - Breast cancer Allergies No Known Drug Allergies Allergy (Verified 12/26/18 10:00) HOME MEDICATIONS: Home Medications Medication Instructions Recorded Albuterol Sulfate Inhaler - 1 inh PO DAILY PRN 10/05/13 [Ventolin HFA Inhaler -] Oxycodone HCl 10 tab PO Q6H PRN 05/04/16 Baclofen [Lioresal -] 10 mg PO DAILY 12/17/18 Cyclobenzaprine HCl [Flexeril -] 5 mg PO TID PRN #12 tablet 12/17/18 Duloxetine HCl [Cymbalta -] 20 mg PO BID 12/17/18 Diclofenac Sodium [Diclofenac 1 tab PO DAILY 12/26/18 Sodium ER] REVIEW OF SYSTEMS CONSTITUTIONAL: Absent: fever, chills, diaphoresis, generalized weakness, malaise, loss of appetite, weight change HEENT: Absent: rhinorrhea, nasal congestion, throat pain, throat swelling, difficulty swallowing, mouth swelling, ear pain, eye pain, visual changes CARDIOVASCULAR: Absent: chest pain, syncope, palpitations, irregular heart rate, lightheadedness , peripheral edema RESPIRATORY: Absent: cough, shortness of breath, dyspnea with exertion, orthopnea, wheezing, stridor, hemoptysis GASTROINTESTINAL: Absent: abdominal pain, abdominal distension, nausea, vomiting, diarrhea, constipation, melena, hematochezia GENITOURINARY: Absent: dysuria, frequency, urgency, hesitancy, hematuria, flank pain, genital pain MUSCULOSKELETAL: back pain Absent: myalgia, arthralgia, joint swelling, neck pain SKIN: Absent: rash, itching, pallor HEMATOLOGIC/IMMUNOLOGIC: Absent: easy bleeding, easy bruising, lymphadenopathy, frequent infections ENDOCRINE: Absent: unexplained weight gain, unexplained weight loss, heat intolerance, cold intolerance NEUROLOGIC: Absent: headache, focal weakness or paresthesias, dizziness, unsteady gait, seizure, mental status changes, bladder or bowel incontinence PSYCHIATRIC: Absent: anxiety, depression, suicidal or homicidal ideation, hallucinations. PHYSICAL EXAMINATION Vital Signs - 24 hr 12/26/18 09:56 Temperature 98.3 F Pulse Rate 86 Respiratory 18 Rate Blood Pressure 118/82 O2 Sat by Pulse 99 Oximetry (%) GENERAL: Awake, alert, and fully oriented, in no acute distress. HEAD: Normal with no signs of trauma. EYES: PERRLA, EOMI, sclera anicteric, conjunctiva clear. EARS, NOSE, THROAT:oropharynx clear without exudates. Moist mucous membranes. NECK: Normal range of motion, supple without lymphadenopathy, JVD, or masses. LUNGS: Breath sounds equal, clear to auscultation bilaterally. HEART: Regular rate and rhythm, normal S1 and S2 without murmur, rub or gallop. ABDOMEN: Soft, nontender, not distended, normoactive bowel sounds. Refused rectal exam. MUSCULOSKELETAL: Normal range of motion of all joints. +Kyphosis. No CVA tenderness. UPPER EXTREMITIES: 2+ pulses, warm, well-perfused. No peripheral edema. LOWER EXTREMITIES: 2+ pulses, warm, well-perfused. No calf tenderness. No peripheral edema. NEUROLOGICAL: Cranial nerves II-XII intact. Normal speech. Motor strength 5/5 on LLE, 4/5 RLE (limited by pain), DTRs +2 bilaterally sensation intact. (-)SLR test, (-)Babinski. Walks on toes with canes. PSYCHIATRIC: Cooperative. Good eye contact. Appropriate mood and affect. SKIN: Warm, dry, normal turgor. Laboratory Results - last 24 hr 12/26/18 12/26/18 12/26/18 10:47 10:47 10:47 WBC 7.6 RBC 4.88 Hgb 15.3 Hct 44.6 MCV 91.4 MCH 31.3 MCHC 34.2 RDW 14.3 Plt Count 154 D MPV 9.5 Absolute Neuts (auto) 4.1 Neutrophils % 54.6 Lymphocytes % 34.4 Monocytes % 6.8 Eosinophils % 2.8 D Basophils % 1.4 Nucleated RBC % 0 PT with INR INR PTT (Actin FS) Sodium 141 Potassium 4.1 Chloride 110 H Carbon Dioxide 27 Anion Gap 4 L BUN 9 Creatinine 0.6 Creat Clearance w eGFR 138.38 Random Glucose 106 Calcium 9.0 Total Bilirubin 0.8 AST 53 H ALT 77 H Alkaline Phosphatase 105 C-Reactive Protein < 0.3 Total Protein 7.2 Albumin 3.7 Blood Type B POSITIVE Antibody Screen Negative 12/26/18 12/26/18 10:47 10:47 WBC RBC Hgb Hct MCV MCH MCHC RDW Plt Count MPV Absolute Neuts (auto) Neutrophils % Lymphocytes % Monocytes % Eosinophils % Basophils % Nucleated RBC % PT with INR 12.70 INR 1.08 PTT (Actin FS) 37.8 H Sodium Potassium Chloride Carbon Dioxide Anion Gap BUN Creatinine Creat Clearance w eGFR Random Glucose Calcium Total Bilirubin AST ALT Alkaline Phosphatase C-Reactive Protein Total Protein Albumin Blood Type Antibody Screen ASSESSMENT/PLAN: Patient is a 58 year old male with past medical history of chronic low back pain , kidney stones, hepatitis C, and emphysema, presented to the ED due to worsening low back pain accompanied by weakness and pain with ambulating that started last month. #Worsening low back pain 2/2 L3-S1 disc herniation with nerve impingement -Lumbar MRI: (12/08/18): L3-L4 minimal disc bulge and a tiny central posterior annular tear without nerve root impingement. Interval moderate right paracentral disc herniation/protrusion deforming the thecal sac and impinging the right L5 nerve root. L5-S1 minimal left paracentral disc bulge reaching left S1 nerve root without gross impingement. -Neurosurgery (Dr. Orellana) consulted. -For possible surgery tomorrow -Will keep patient NPO after midnight. -Will hold Heparin ppx after midnight. -EKG -CXR -pain control with home dose of Oxycodone 10mg TID and Morphine PRN -Incentive spirometry #COPD: chronic, asymptomatic -Albuterol IH BID -Duonebs q4h PRN #Hepatitis C: chronic -Will monitor LFTs -to follow up as outpatient #FEN -Not on any standing fluids -Electrolytes wnl, routine bmp monitoring -Regular diet, NPO after midnight #Prophylaxis -Heparin 5000units tid -will hold after midnight for possible surgery tomorrow #Disposition -full code -med-surg Visit type - Emergency Visit Emergency Visit: Yes ED Registration Date: 12/26/18 Care time: The patient presented to the Emergency Department on the above date and was hospitalized for further evaluation of their emergent condition. - New Patient This patient is new to me today: Yes Date on this admission: 12/26/18 - Critical Care Critical Care patient: No
[2018-12-26] MEDS: oxyCODONE HCL 5 MG TABLET PO SCH ×2 (15:43→21:23)
[2018-12-26] MEDS: BACLOFEN 10 MG TABLET (FP) PO SCH (15:43)
--- NOTE | 2018-12-26 17:07 | PN ---
Teaching Attending Note Name of Resident: Nancy Castañeda ATTENDING PHYSICIAN STATEMENT I saw and evaluated the patient. I reviewed the resident's note and discussed the case with the resident. I agree with the resident's findings and plan as documented. SUBJECTIVE: CC: Lower back pain . HPI : 58 y/o man with h/o nephrolithiasis , chronic lower back pain, partially treated Hep C, and COPD who presented with worsening chronic Lower back pain patient had lower back pain for years, most recently worsened requiring frequent Er visits. he was referred to PT and has been seeing a chiropractor. pain radiates form to posterior R thigh and leg. he reports weakness in RLE. on 12/16 he saw his chiropractor who adjusted his back, which resulted in worsening back pain with difficulty waling. he uses 2 canes to ambulate and this has not changed after seeing his chiropractor. he denies fever , chills, recent traum or heavy lifting. No saddle anesthesia and no urinary/fecal retention or incontinence. he saw Dr. Mendoza in office today and was sent here. MRI of L spine on 12/08/18 reviewed. OBJECTIVE: NAd , AAox3, pleasant HEENT: no LAP inneck ,MMM, EOMI, no facial droop CV: RRR, no MRG lungs: CTAB Abd: soft, NT, Nd , NL Bs Ext : no jesus manuel or erythema. muscular atrophy in R calf. sensitivity in the skin of posterior leg and thigh on R side. no fungal infection Neuro : EOMI, round equal pupils, reactive to light. no facial droop. strength 5/5 in upper extremities proximally and distally RLE: hip flexion 4/5 , knee flexion and extension, ankle dorsiflexion and plantar flexion 5/5 LLE: hip flexion 5/5 , knee flexion and extension, ankle dorsiflexion and plantar flexion 5/5 reflexes : 2+ knee jerk and biceps , 2 + ankle jerks b/l Sensation hypersensitivity in R posterior leg and thigh . No saddle anestheia refused rectal exam for rectal tone ASSESSMENT AND PLAN: 58 y/o man with h/o nephrolithiasis , chronic lower back pain, partially treated Hep C, and COPD who presented with worsening chronic Lower back pain. 1- Worsening Lower back pain: with no red flags for infection or cord compression /cauda equina syndrome. last MRI 12/08/18 was reviewed. - Due to recent back manipulation on 12/16 , will obtain an MRI of L spine - morphine, oxy, tylenol, and lidocaine patch for pain - hold off PT for now - Consult dr. Mendoza - Pre-Op risk stratification: the procedure is an intermediate risk procedure. the patient himself has no signs of CHF, ACS, arrhythmias, or active cardiac problem, n oh/o CAD, CHF or arrhythmias . His EKG shows sins rhythm, with Qtc of 400. His functional sttaus is poor though due to pain. this puts him at intermediate risk for favio-op cardiac complications for this intermediate risk procedure. No further w/u is indicated though prior to his sx 2- H/o partially treated hep C: recommended f/u with GI for treatment as out pt 3- COPD: cont inhalers and Nebs 4- DVT px: heparin Sq. hold at [facility] for possible sx tomorrow
--- NOTE | 2018-12-26 17:50 | EKG ---
Test Reason : Blood Pressure : / mmHG Vent. Rate : 059 BPM Atrial Rate : 059 BPM P-R Int : 136 ms QRS Dur : 070 ms QT Int : 396 ms P-R-T Axes : 061 053 048 degrees QTc Int : 392 ms SINUS BRADYCARDIA SEPTAL INFARCT (CITED ON OR BEFORE 26-DEC-2018) ABNORMAL ECG WHEN COMPARED WITH ECG OF 26-DEC-2018 11:34, NO SIGNIFICANT CHANGE WAS FOUND Confirmed by DENISE OLIVEIRA MD ([id number]) on 12/26/2018 5:50:03 PM Referred By: JOZEF BREWER Confirmed By:DENISE OLIVEIRA MD
--- NOTE | 2018-12-26 17:51 | EKG ---
Test Reason : Blood Pressure : / mmHG Vent. Rate : 061 BPM Atrial Rate : 061 BPM P-R Int : 140 ms QRS Dur : 072 ms QT Int : 398 ms P-R-T Axes : 056 043 052 degrees QTc Int : 400 ms NORMAL SINUS RHYTHM SEPTAL INFARCT , AGE UNDETERMINED ABNORMAL ECG WHEN COMPARED WITH ECG OF 05-MAY-2016 10:05, NO SIGNIFICANT CHANGE WAS FOUND Confirmed by DENISE OLIVEIRA MD ([id number]) on 12/26/2018 5:51:06 PM Referred By: Confirmed By:DENISE OLIVEIRA MD
[2018-12-26] MEDS ORDERED: FLU VACCINE QUAD 60 MCG/0.5 ML (MDV 18-19) IM ONE (18:00)
[2018-12-26] MEDS ORDERED: HEPARIN NA (PORCINE) 5,000 UNITS/ML 1ML VIAL SQ SCH (18:00)
[2018-12-26 18:07] VITALS: BMI 17.2
[2018-12-26] MEDS ORDERED: PNEUMOC 13-VAL CONJ-DIP CRM/PF 0.5 ML DISP.SYRIN IM ONE (18:10)
[2018-12-26] MEDS ORDERED: PNEUMOCOCCAL 23 VACCINE 0.5 ML VIAL IM ONE (18:30)
[2018-12-26 18:54] LABS: EPI CELLS 0.8 /HPF (0-5/HPF); PH,URINE 6.5 (5.0-8.0); URINE APPEARANCE CLEAR; URINE BACTERIA 3.4 /hpf (NEGATIVE); URINE BILIRUBIN 1+ (NEGATIVE); URINE CASTS 2 /lpf (0-8); URINE COLOR DK YELLOW; URINE GLUCOSE (UA) NEGATIVE (NEGATIVE); URINE KETONE TRACE (NEGATIVE); URINE LEUK ESTERASE TRACE (NEGATIVE); URINE NITRITE NEGATIVE (NEGATIVE); URINE PROTEIN NEGATIVE (NEGATIVE); URINE RBC 4 /hpf (0-4); URINE UROBILINOGEN 4.0 E.U/dl mg/dL (0.2-1.0); URINE WBC 2 /hpf (0-5)
[2018-12-26 18:57] LABS: COCAINE, UR NEGATIVE ng/ml (CUTOFF=300); METHADONE, UR NEGATIVE ng/ml (CUTOFF=300); PHENCYCLIDINE,URINE NEGATIVE ng/ml (CUTOFF=25); URINE AMPHETAMINES NEGATIVE ng/ml (CUTOFF=500); URINE BARBITURATES NEGATIVE ng/ml (CUTOFF=200); URINE BENZODIAZEPINES NEGATIVE ng/ml (CUTOFF=200)
[2018-12-26 19:02] LABS: OPIATES, URI POSITIVE ng/ml (CUTOFF=300)
[2018-12-26] MEDS ORDERED: PT OWN MED DRAWER 7, Y5N ONE (21:22)
[2018-12-26] MEDS: DULoxetine HCL 20 MG CAPSULE.DR (FP) PO SCH (21:24)
[2018-12-26] MEDS ORDERED: LIDOCAINE PATCH REMOVAL MC SCH (22:00)
[2018-12-26] MEDS ORDERED: CHLORHEXIDINE GLUCONATE 4% CLEANSER FOR DECOLONIZATION TP SCH (22:00)
[2018-12-27] MEDS: oxyCODONE HCL 5 MG TABLET PO SCH (05:57)
[2018-12-27 07:35] LABS: HEMATOCRIT 45.4 % (35.4-49); HEMOGLOBIN 15.2 GM/dL (11.7-16.9); MCH 30.5 pg (25.7-33.7); MCHC 33.5 g/dl (32.0-35.9); MEAN PLT VOLUME 9.8 fl (7.5-11.1); MONO % 8.9 % (3.8-10.2); NEUT % 43.1 % (42.8-82.8); PLATELET COUNT 161 K/MM3 (134-434); RBC 4.99 M/mm3 (4.00-5.60); RDW 14.3 % (11.9-15.9); WHITE BLOOD COUNT 8.6 K/mm3 (4.0-10.0)
[2018-12-27 07:50] LABS: BLOOD UREA NITROGEN 15 mg/dL (7-18); CHLORIDE 106 mmol/L (98-107); CO2 26 mmol/L (21-32); CREATININE 0.9 mg/dL (0.55-1.3); GLUCOSE,RANDOM 96 mg/dL (74-106); POTASSIUM 3.9 mmol/L (3.5-5.1); SODIUM 136 mmol/L (136-145)
[2018-12-27 07:51] LABS: ALBUMIN 3.7 g/dl (3.4-5.0); ALK PHOS 110 U/L (45-117); ANION GAP 5 MMOL/L (8-16); CALCIUM 8.8 mg/dL (8.5-10.1); MAGNESIUM 1.8 mg/dL (1.8-2.4); PHOSPHOROUS 3.5 mg/dL (2.5-4.9); SGOT/AST 74 U/L (15-37); SGPT/ALT 94 U/L (13-61); TOT PROT 7.3 g/dl (6.4-8.2)
[2018-12-27 07:58] LABS: INR 1.09 (0.83-1.09); PROTHROMBIN TIME (PATIENT) 12.9 SEC (9.7-13.0)
[2018-12-27 08:00] LABS: ACTIVATED PTT 36.5 SECONDS (25.2-36.5)
[2018-12-27] MEDS ORDERED: PT OWN MED DRAWER 7, Y5N ONE (09:12)
[2018-12-27] MEDS: BACLOFEN 10 MG TABLET (FP) PO SCH (09:15)
[2018-12-27] MEDS: DULoxetine HCL 20 MG CAPSULE.DR (FP) PO SCH ×2 (09:15→21:18)
[2018-12-27] MEDS ORDERED: KETAMINE HCL 200 MG/20 ML VIAL ONE ×2 (09:40→11:22)
[2018-12-27] MEDS ORDERED: MIDAZOLAM HCL 2 MG/2 ML SINGLE DOSE VIAL ONE ×2 (09:40→11:22)
[2018-12-27] MEDS ORDERED: MORPHINE 5 MG/10 ML AMP - FOR COMPOUNDING USE ONLY ONE ×2 (09:47→11:22)
[2018-12-27] MEDS ORDERED: GENTAMICIN SO4 80 MG/2 ML VIAL ONE (11:10)
[2018-12-27] MEDS ORDERED: THROMBIN (BOVINE) 5,000 UNIT VIAL TP ONE ×2 (11:10→13:17)
[2018-12-27] MEDS ORDERED: morphine SULFATE/Preservative Free 0.5 MG/ML (1cc Syringe) EP ONE (12:00)
[2018-12-27] MEDS ORDERED: PROPOFOL 20 ML ONE (12:04)
[2018-12-27] MEDS ORDERED: ceFAZolin SODIUM 1 GM VIAL IVPB ONE (12:16)
[2018-12-27] MEDS ORDERED: LIDOCAINE 1%/EPI 1:100000 (20 ML MULTI DOSE VIAL) IJ ONE (12:20)
[2018-12-27] MEDS ORDERED: BUPIVACAINE LIPOSOME/PF (EXPAREL) 266 MG/20 ML VIAL ONE (12:38)
[2018-12-27] MEDS ORDERED: BUPIVACAINE HCL/PF 0.25% (2.5MG/ML) 10 ML VIAL ONE (12:38)
[2018-12-27] MEDS ORDERED: VANCOMYCIN 1,000 MG VIAL (RESTRICTED TO ID ONLY) ONE (12:42)
[2018-12-27] MEDS ORDERED: VANCOMYCIN 1,000 MG VIAL (RESTRICTED TO ID ONLY) IVPB ONE ×2 (12:48→13:15)
[2018-12-27] MEDS ORDERED: GENTAMICIN 80MG PREMIX BAG IVPB ONE (13:10)
[2018-12-27] MEDS ORDERED: BACITRACIN 50,000 UNITS VIAL TP ONE ×2 (13:11→13:14)
[2018-12-27] MEDS ORDERED: GELATIN, ABSORBABLE 12-7MM EACH SPONGE TP ONE (13:15)
[2018-12-27] MEDS ORDERED: HYDROGEN PEROXIDE 473 ML PO ONE (13:16)
[2018-12-27] MEDS ORDERED: BUPIVACAINE LIPOSOME/PF (EXPAREL) 266 MG/20 ML VIAL NR ONE (13:18)
[2018-12-27] MEDS ORDERED: BUPIVACAINE HCL/PF 0.25% (2.5MG/ML) 10 ML VIAL IJ ONE ×2 (13:19)
[2018-12-27] MEDS ORDERED: ePHEDrine SULFATE 50 MG/1 ML AMPULE ONE (13:28)
[2018-12-27] MEDS ORDERED: GLYCOPYRROLATE 0.2 MG/1 ML VIAL ONE (13:44)
[2018-12-27] MEDS ORDERED: NEOSTIGMINE METHYLSULFATE 0.5 MG/1 ML - 10 ML MDV ONE (13:44)
--- NOTE | 2018-12-27 14:36 | OP ---
Operative Note - Note: Operative Date: 12/27/18 Pre-Operative Diagnosis: Chronic low back pain (L4/5) region, degenerative changes, radiculopathy Operation: L4/5 PLIF Post-Operative Diagnosis: Same as Pre-op Surgeon: Juan Antonio Orellana Box Closing Machine Operator: Donnie Scales Anesthesiologist/RN TRANSFER: Dang Newell Anesthesia: General Specimens Removed: L4/5 disc Estimated Blood Loss (mls): 50 Drains & Tubes with Location: Lumbar JUAN Drains, Volume Out (mls): 50 (ellison/clear) Fluid Volume Replaced (mls): 1,500 Operative Report Dictated: Yes
[2018-12-27] MEDS ORDERED: ONDANSETRON 4 MG/2 ML VIAL IVPUSH PRN (14:41)
[2018-12-27] MEDS ORDERED: oxyCODONE HCL 5 MG TABLET PO PRN ×2 (14:41)
--- NOTE | 2018-12-27 14:51 | PN ---
Physical Exam: SUBJECTIVE: Patient seen and examined at bedside this morning. No acute events overnight. Patient's pain has been controlled by home dose of Oxycodone. No morphine was given. Patient kept on NPO for surgery today. Patient has no complaints and denies fever, chills, headache, chest pain, SOB, palpitations, abdominal pain, urinary symptoms. OBJECTIVE: Vital Signs Temperature 98.7 F 12/27/18 10:00 Pulse Rate 63 12/27/18 10:00 Respiratory Rate 20 12/27/18 10:00 Blood Pressure 124/80 12/27/18 10:00 O2 Sat by Pulse Oximetry (%) 99 12/26/18 21:00 GENERAL: Awake, alert, and fully oriented, in no acute distress. HEAD: Normal with no signs of trauma. EYES: PERRLA, EOMI, sclera anicteric, conjunctiva clear. EARS, NOSE, THROAT:oropharynx clear without exudates. Moist mucous membranes. NECK: Normal range of motion, supple without lymphadenopathy, JVD, or masses. LUNGS: Breath sounds equal, clear to auscultation bilaterally. HEART: Regular rate and rhythm, normal S1 and S2 without murmur, rub or gallop. ABDOMEN: Soft, nontender, not distended, normoactive bowel sounds. Refused rectal exam. MUSCULOSKELETAL: Normal range of motion of all joints. +Kyphosis. No CVA tenderness. UPPER EXTREMITIES: 2+ pulses, warm, well-perfused. No peripheral edema. LOWER EXTREMITIES: 2+ pulses, warm, well-perfused. No calf tenderness. No peripheral edema. NEUROLOGICAL: Cranial nerves II-XII intact. Normal speech. Motor strength 5/5 on LLE, 4/5 R hip flexion, DTRs +2 bilaterally sensation intact. (-)SLR test, (-)Babinski. Walks on toes with canes. PSYCHIATRIC: Cooperative. Good eye contact. Appropriate mood and affect. SKIN: Warm, dry, normal turgor. Laboratory Results - last 24 hr 12/26/18 12/26/18 12/26/18 16:09 17:55 17:55 WBC RBC Hgb Hct MCV MCH MCHC RDW Plt Count MPV Absolute Neuts (auto) Neutrophils % Lymphocytes % Monocytes % Eosinophils % Basophils % Nucleated RBC % PT with INR INR PTT (Actin FS) Sodium Potassium Chloride Carbon Dioxide Anion Gap BUN Creatinine Creat Clearance w eGFR Random Glucose Calcium Phosphorus Magnesium Total Bilirubin AST ALT Alkaline Phosphatase Total Protein Albumin Urine Color Dk yellow Urine Appearance Clear Urine pH 6.5 D Ur Specific [place] 1.025 Urine Protein Negative Urine Glucose (UA) Negative Urine Ketones Trace H Urine Blood Negative Urine Nitrite Negative Urine Bilirubin 1+ H Urine Urobilinogen 4.0 e.u/dl Ur Leukocyte Esterase Trace Urine WBC (Auto) 2 Urine RBC (Auto) 4 Urine Casts (Auto) 2 U Epithel Cells (Auto) 0.8 Urine Bacteria (Auto) 3.4 Opiates Screen Positive A* Methadone Screen Negative Barbiturate Screen Negative Phencyclidine Screen Negative Ur Amphetamines Screen Negative MDMA (Ecstasy) Screen Negative Benzodiazepines Screen Negative Cocaine Screen Negative U Marijuana (THC) Screen Positive A* Blood Type B POSITIVE 12/27/18 12/27/18 12/27/18 06:40 06:40 06:40 WBC 8.6 RBC 4.99 Hgb 15.2 Hct 45.4 MCV 91.0 MCH 30.5 MCHC 33.5 RDW 14.3 Plt Count 161 MPV 9.8 Absolute Neuts (auto) 3.7 Neutrophils % 43.1 D Lymphocytes % 44.0 H D Monocytes % 8.9 Eosinophils % 3.0 Basophils % 1.0 Nucleated RBC % 0 PT with INR 12.90 INR 1.09 PTT (Actin FS) 36.5 Sodium 136 Potassium 3.9 Chloride 106 Carbon Dioxide 26 Anion Gap 5 L BUN 15 Creatinine 0.9 Creat Clearance w eGFR 86.67 Random Glucose 96 Calcium 8.8 Phosphorus 3.5 Magnesium 1.8 Total Bilirubin 1.0 AST 74 H ALT 94 H Alkaline Phosphatase 110 Total Protein 7.3 Albumin 3.7 Urine Color Urine Appearance Urine pH Ur Specific [place] Urine Protein Urine Glucose (UA) Urine Ketones Urine Blood Urine Nitrite Urine Bilirubin Urine Urobilinogen Ur Leukocyte Esterase Urine WBC (Auto) Urine RBC (Auto) Urine Casts (Auto) U Epithel Cells (Auto) Urine Bacteria (Auto) Opiates Screen Methadone Screen Barbiturate Screen Phencyclidine Screen Ur Amphetamines Screen MDMA (Ecstasy) Screen Benzodiazepines Screen Cocaine Screen U Marijuana (THC) Screen Blood Type Active Medications Generic Name Dose Route Start Last Admin Trade Name Freq PRN Reason Stop Dose Admin Albuterol Sulfate 1 puff 12/26/18 14:22 Ventolin Hfa Inhaler - IH DAILY PRN ASTHMA Albuterol/Ipratropium 1 amp 12/26/18 14:21 Duoneb - NEB Q4H PRN SHORTNESS OF BREATH Baclofen 10 mg 12/26/18 14:30 12/27/18 09:15 Lioresal - PO 10 mg DAILY ABENA Administration Chlorhexidine Gluconate 1 applic 12/26/18 22:00 12/26/18 21:48 Hibiclens For Decolonization - TP Not Given HS [facility] Cyclobenzaprine HCl 5 mg 12/26/18 14:22 12/26/18 15:43 Flexeril - PO 5 mg TID PRN Administration BACK PAIN Duloxetine HCl 20 mg 12/26/18 22:00 12/27/18 09:15 Cymbalta - PO 20 mg BID ABENA Administration Miscellaneous 1 each 12/26/18 22:00 12/26/18 21:24 Lidoderm Patch Removal MC 1 each DAILY@2200 ABENA Administration Morphine Sulfate 4 mg 12/26/18 14:24 Morphine Sulfate IVPUSH Q6H PRN PAIN LEVEL 7 - 10 Oxycodone HCl 10 mg 12/26/18 15:45 12/27/18 05:57 Roxicodone - PO 10 mg TID ABENA Administration -Lumbar MRI: (12/08/18): L3-L4 minimal disc bulge and a tiny central posterior annular tear without nerve root impingement. Interval moderate right paracentral disc herniation/protrusion deforming the thecal sac and impinging the right L5 nerve root. L5-S1 minimal left paracentral disc bulge reaching left S1 nerve root without gross impingement. -Lumbar MRI (12/26/18): Sacralization of L5. Degenerative disc disease lumbosacral spine predominant L3-L4, L4-L5 with straightening of lordosis. L4- L5 narrowing of disc space with large midline herniation with extruded disc material midline lateralizing toward the right obliterating the right L4-L5 recess with mass effect on right L5 nerve root. L3-L4 small disc protrusion lateralizing toward the right. ASSESSMENT/PLAN: Patient is a 58 year old male with past medical history of chronic low back pain , kidney stones, hepatitis C, and emphysema, presented to the ED due to worsening low back pain accompanied by weakness and pain with ambulating that started last month. #Worsening low back pain 2/2 L3-S1 disc herniation with nerve impingement -Neurosurgery (Dr. Orellana) consulted. -POD 0: L4-L5 laminectomy with fusion. -Diet as per surgery -pain control as per anesthesia -Incentive spirometry #COPD: chronic, asymptomatic -Albuterol IH BID -Duonebs q4h PRN #Hepatitis C: chronic -Will monitor LFTs -to follow up as outpatient #FEN -Not on any standing fluids -Electrolytes wnl, routine bmp monitoring -diet as per surgery #Prophylaxis -Heparin 5000units tid #Disposition -full code -med-surg Visit type - Emergency Visit Emergency Visit: Yes ED Registration Date: 12/26/18 Care time: The patient presented to the Emergency Department on the above date and was hospitalized for further evaluation of their emergent condition. - New Patient This patient is new to me today: No - Critical Care Critical Care patient: No
[2018-12-27] MEDS ORDERED: morphine SULFATE 4 MG/ML VIAL IVPUSH PRN (14:56)
[2018-12-27] MEDS ORDERED: CYCLOBENZAPRINE HCL 10 MG TABLET (FP) PO PRN (14:56)
[2018-12-27] MEDS ORDERED: ALBUTEROL SO4 8 GM HFA INHALER IH PRN (14:56)
[2018-12-27] MEDS ORDERED: ALBUTEROL SO4 2.5/IPRATROPIUM 0.5 INH SOL 3 ML VIAL.NEB. NEB PRN (14:56)
[2018-12-27] MEDS: ACETAMINOPHEN 325 MG TABLET (FP) PO SCH ×2 (16:54→21:18)
[2018-12-27] MEDS: CEFAZOLIN 1 GM/D5W 1 GM/50 ML BAG IVPB SCH (17:04)
--- NOTE | 2018-12-27 18:01 | PN ---
Teaching Attending Note Name of Resident: Nancy Castañeda ATTENDING PHYSICIAN STATEMENT I saw and evaluated the patient. I reviewed the resident's note and discussed the case with the resident. I agree with the resident's findings and plan as documented. SUBJECTIVE: seen after his sx minimal back pain. No SOB or cough . no CP . no pain in legs or numbness/ tingling/weakness OBJECTIVE: NAd lungs: CTAB Ext : no edema or erythema. muscular atrophy in R calf.no tenderness with palpation to R calf and posterior thigh MS: surgical dressing over L area. with JUAN ( bloody drainage) . Neuro of LE : RLE: hip flexion 5/5 , knee flexion and extension, ankle dorsiflexion and plantar flexion 5/5 LLE: hip flexion 5/5 , knee flexion and extension, ankle dorsiflexion and plantar flexion 5/5 reflexes : 2+ knee jerk b/l Nl sensation to light touch ASSESSMENT AND PLAN: 58 y/o man with h/o nephrolithiasis, chronic lower back pain, partially treated Hep C, and COPD who presented with worsening chronic Lower back pain. 1- L4-5 disc herniation with L 5 radiculopathy. s/p sx today POD 0. - doing well with improvement in his neuro exam. - incentive spirometer - pain control with po oxycodone and oxycontin - back brace ordered. to be obtained and applied - shilo ellison in am - JUAN drain to be managed by sx 2- H/o partially treated hep C: recommended f/u with GI for treatment as out pt 3- COPD: cont inhalers and Nebs 4- DVT px: will check with dr. pate when to resume heparin . hopefully in am . dispo: has JUAN drain. need PT eval. expect him to do well and not to require rehab.
[2018-12-27] MEDS: LACTATED RINGERS SOLUTION 1,000 ML/1,000 ML INFUS.BAG IV SCH (19:00)
[2018-12-27] MEDS: HEPARIN NA (PORCINE) 5,000 UNITS/ML 1ML VIAL SQ SCH (21:18)
[2018-12-27] MEDS: DOCUSATE SODIUM 100 MG CAPSULE (FP) PO SCH (21:18)
[2018-12-27] MEDS ORDERED: LIDOCAINE PATCH REMOVAL MC SCH (22:00)
[2018-12-27] MEDS ORDERED: oxyCODONE HCL 5 MG TABLET PO SCH (22:00)
[2018-12-27] MEDS ORDERED: CHLORHEXIDINE GLUCONATE 4% CLEANSER FOR DECOLONIZATION TP SCH (22:00)
[2018-12-28] MEDS ORDERED: oxyCODONE HCL 5 MG TABLET PO PRN ×4 (01:50→12:00)
[2018-12-28] MEDS: CEFAZOLIN 1 GM/D5W 1 GM/50 ML BAG IVPB SCH ×2 (01:53→09:11)
[2018-12-28] MEDS: ACETAMINOPHEN 325 MG TABLET (FP) PO SCH ×4 (04:10→22:30)
[2018-12-28] MEDS: DOCUSATE SODIUM 100 MG CAPSULE (FP) PO SCH ×3 (06:26→22:32)
[2018-12-28] MEDS: HEPARIN NA (PORCINE) 5,000 UNITS/ML 1ML VIAL SQ SCH ×3 (06:26→22:33)
[2018-12-28 07:23] LABS: HEMATOCRIT 39.3 % (35.4-49); HEMOGLOBIN 13.2 GM/dL (11.7-16.9); MCH 30.3 pg (25.7-33.7); MCHC 33.7 g/dl (32.0-35.9); MEAN CELL VOLUME 89.9 fl (80-96); MEAN PLT VOLUME 9.6 fl (7.5-11.1); PLATELET COUNT 156 K/MM3 (134-434); RBC 4.37 M/mm3 (4.00-5.60); RDW 13.6 % (11.9-15.9); WHITE BLOOD COUNT 15.2 K/mm3 (4.0-10.0)
[2018-12-28 07:42] LABS: ALBUMIN 3.3 g/dl (3.4-5.0); ALK PHOS 90 U/L (45-117); ANION GAP 6 MMOL/L (8-16); BILIRUBIN,TOTAL 0.8 mg/dL (0.2-1); BLOOD UREA NITROGEN 14 mg/dL (7-18); CHLORIDE 104 mmol/L (98-107); CO2 30 mmol/L (21-32); CREATININE 0.8 mg/dL (0.55-1.3); GLUCOSE,RANDOM 123 mg/dL (74-106); MAGNESIUM 1.8 mg/dL (1.8-2.4); PHOSPHOROUS 3.4 mg/dL (2.5-4.9); SGOT/AST 52 U/L (15-37); SGPT/ALT 75 U/L (13-61); SODIUM 139 mmol/L (136-145); TOT PROT 6.4 g/dl (6.4-8.2)
[2018-12-28] MEDS ORDERED: PT OWN MED DRAWER 7, Y5N ONE ×2 (09:03→21:09)
[2018-12-28] MEDS: FERROUS SO4 325 MG TABLET (FP) PO SCH (09:07)
[2018-12-28] MEDS: oxyCODONE HCL 10 MG SUSTAINED ACTING TABLET PO SCH ×2 (09:07→22:32)
[2018-12-28] MEDS: FOLIC ACID 1 MG TABLET (FP) PO SCH (09:07)
[2018-12-28] MEDS: BACLOFEN 10 MG TABLET (FP) PO SCH (09:07)
[2018-12-28] MEDS: DULoxetine HCL 20 MG CAPSULE.DR (FP) PO SCH ×2 (09:08→22:33)
--- NOTE | 2018-12-28 10:33 | PN ---
Progress Note (short form) - Note Progress Note: Anesthesiology Post-op 58 y.o. man POD#1 s/p lumbar laminectomy with fusion under GA with intrathecal duramorph. Pt. resting comfortably in bed. He has no pain, states that he is feeling well. No apparent anesthesia-related issues. Elevated WBC today but VSS, afebrile. 58 y.o. man with stable post-operative course. Continue management as per primary team.
--- NOTE | 2018-12-28 10:38 | PN ---
Progress Note (short form) - Note Progress Note: Surgery POD #1 L4-L5 PLIF patient seen and examined at bedside with no complaints. Patient has been tolerating his diet and denies any CP, SOB, N/V/D, fever or chills. He states overall he feels well and is anxious to go home. Vital Signs Temp 98.1 F 12/28/18 06:44 Pulse 75 12/28/18 06:44 Resp 16 12/28/18 06:44 BP 105/57 L 12/28/18 06:44 Pulse Ox 100 12/27/18 15:45 Intake & Output 12/27/18 12/27/18 12/28/18 11:59 23:59 11:59 Intake Total 2450 100 Output Total 2520 490 Balance -70 -390 Intake: IV 1850 Oral 600 100 Output: Drainage 220 90 Lower Back 120 90 Urine 2250 400 Ellison 700 400 Void 500 Estimated Blood Loss 50 Other: Voiding Method Toilet Indwelling Catheter Bowel Movement No No CBC, BMP 12/28/18 06:20 12/28/18 06:20 PE: A&Ox3, NAD unlabored resp on RA lumbar spine: dressing c/d/i with surrounding tissue intact. no edema or tracking erythema. no evidence of d/c. Drain at right lumbar paravetebral in good position drained (200cc post op). B/L LE compartments soft, supple and non-tender to palpation with +2 dp pulses. Problem List - Problems (1) S/P lumbar spinal fusion Assessment/Plan: POD #1 PLIF doing well with elevated WBC, afebrile, likely post op inflammatory response. 1) Trend daily labs 2) d/c ellison as ordered 3) OOB with PT 4) DVT prophylaxis with b/l scds and SQ heparin 5) TLSO brace when OOB Code(s): Z98.1 - ARTHRODESIS STATUS
--- NOTE | 2018-12-28 12:45 | PN ---
Teaching Attending Note Name of Resident: Nancy Castañeda ATTENDING PHYSICIAN STATEMENT I saw and evaluated the patient. I reviewed the resident's note and discussed the case with the resident. I agree with the resident's findings and plan as documented. SUBJECTIVE: Patient denies back pain, pain in legs. He has not been out of bed yet. OBJECTIVE: Vital Signs Period Temp Pulse Resp BP Sys/Piper Pulse Ox Last 24 Hr 97 F-98.1 F 20-95 14-20 105-140/57-74 99-100 HEART: S1S2, RRR LUNGS: Clear ABDOMEN: Soft, non-tender, non-distended, normal BS EXTREMITIES: No edema Laboratory Results - last 24 hr 12/28/18 12/28/18 06:20 06:20 WBC 15.2 H RBC 4.37 Hgb 13.2 Hct 39.3 MCV 89.9 MCH 30.3 MCHC 33.7 RDW 13.6 Plt Count 156 MPV 9.6 Sodium 139 Potassium 4.0 Chloride 104 Carbon Dioxide 30 Anion Gap 6 L BUN 14 Creatinine 0.8 Creat Clearance w eGFR 99.29 Random Glucose 123 H Calcium 9.0 Phosphorus 3.4 Magnesium 1.8 Total Bilirubin 0.8 AST 52 H ALT 75 H Alkaline Phosphatase 90 Total Protein 6.4 Albumin 3.3 L Current Medications Generic Name Dose Route Start Last Admin Trade Name Freq PRN Reason Stop Dose Admin Acetaminophen 650 mg 12/27/18 15:45 12/28/18 09:07 Tylenol - PO 650 mg Q6H ABENA Administration Albuterol Sulfate 1 puff 12/27/18 14:56 Ventolin Hfa Inhaler - IH Q6H PRN ASTHMA Albuterol/Ipratropium 1 amp 12/27/18 14:56 Duoneb - NEB Q4H PRN SHORTNESS OF BREATH Baclofen 10 mg 12/28/18 10:00 12/28/18 09:07 Lioresal - PO 10 mg DAILY ABENA Administration Cyclobenzaprine HCl 5 mg 12/27/18 14:56 12/27/18 21:17 Flexeril - PO 5 mg Q8H PRN Administration BACK PAIN Docusate Sodium 100 mg 12/27/18 22:00 12/28/18 06:26 Colace - PO 100 mg TID ABENA Administration Duloxetine HCl 20 mg 12/27/18 22:00 12/28/18 09:08 Cymbalta - PO 20 mg BID ABENA Administration Ferrous Sulfate 325 mg 12/28/18 10:00 12/28/18 09:07 Feosol - PO 325 mg DAILY ABENA Administration Folic Acid 1 mg 12/28/18 10:00 12/28/18 09:07 Folic Acid - PO 1 mg DAILY ABENA Administration Heparin Sodium (Porcine) 5,000 unit 12/27/18 22:00 12/28/18 06:26 Heparin - SQ 5,000 unit TID ABENA Administration Cefazolin Sodium 1 gm in 50 mls @ 100 mls/hr 12/27/18 18:00 12/28/18 09:11 Ancef 1 Gm Premixed Ivpb - IVPB 12/28/18 17:59 100 mls/hr Q8H-IV ABENA Administration Lactated Ringer's 1,000 ml in 1,000 mls @ 125 mls/hr 12/27/18 14:45 12/27/18 19:00 Lactated Ringers Solution IV 125 mls/hr ASDIR ABENA Administration Ondansetron HCl 4 mg 12/27/18 14:41 Zofran Injection IVPUSH Q6H PRN NAUSEA Oxycodone HCl 10 mg 12/28/18 10:00 12/28/18 09:07 Oxycontin - PO 10 mg BID ABENA Administration Oxycodone HCl 5 mg 12/28/18 12:00 Roxicodone - PO Q3H PRN PAIN LEVEL 1 - 3 Oxycodone HCl 15 mg 12/28/18 12:00 Roxicodone - PO Q4H PRN PAIN LEVEL 7 - 10 Oxycodone HCl 10 mg 12/28/18 01:50 12/28/18 01:53 Roxicodone - PO 10 mg Q3H PRN Administration PAIN LEVEL 4 - 6 ASSESSMENT AND PLAN: This is a 58 year old man with a history of nephrolithiasis, lumbar disc disease with radiculopathy, hepatitis C, COPD who presented to the ED with worsening low back pain. 1. L4-5 disc herniation with radiculopathy - s/p L4-5 PLIF 12/27 - Has JUAN drain - Continue Cymbalta, Baclofen, OxyContin, oxycodone as needed - Physical therapy - TLSO brace ordered 2. COPD - Stable 3. Hepatitis C - Previously partially treated - Outpatient follow-up
--- NOTE | 2018-12-28 15:03 | PN ---
Physical Exam: SUBJECTIVE: Patient seen and examined at bedside this morning. No acute events overnight. Patient reports feeling well this morning, sitting comfortably in bed , denies any pain in the back. Was able to walk 120ft with physical therapy. JUAN drain 210cc. +flatus, +BM. Denies fever, chills, headache, chest pain, SOB, abdominal pain, diarrhea, urinary symptoms. OBJECTIVE: Vital Signs Temperature 98.1 F 12/28/18 06:44 Pulse Rate 75 12/28/18 06:44 Respiratory Rate 16 12/28/18 06:44 Blood Pressure 105/57 L 12/28/18 06:44 O2 Sat by Pulse Oximetry (%) 100 12/27/18 15:45 GENERAL: Awake, alert, and fully oriented, in no acute distress. HEAD: Normal with no signs of trauma. EYES: PERRLA, EOMI, sclera anicteric, conjunctiva clear. EARS, NOSE, THROAT:oropharynx clear without exudates. Moist mucous membranes. NECK: Normal range of motion, supple without lymphadenopathy, JVD, or masses. LUNGS: Breath sounds equal, clear to auscultation bilaterally. HEART: Regular rate and rhythm, normal S1 and S2 without murmur, rub or gallop. ABDOMEN: Soft, nontender, not distended, normoactive bowel sounds. Refused rectal exam. MUSCULOSKELETAL: Normal range of motion of all joints. +Kyphosis. +clean dry dressing at the back. JUAN drain in place draining sanguinous fluid. UPPER EXTREMITIES: 2+ pulses, warm, well-perfused. No peripheral edema. LOWER EXTREMITIES: 2+ pulses, warm, well-perfused. No calf tenderness. No peripheral edema. NEUROLOGICAL: Cranial nerves II-XII intact. Normal speech. Motor strength 5/5 bilaterally, DTRs +2, sensation intact. PSYCHIATRIC: Cooperative. Good eye contact. Appropriate mood and affect. SKIN: Warm, dry, normal turgor. Laboratory Results - last 24 hr 12/28/18 12/28/18 06:20 06:20 WBC 15.2 H RBC 4.37 Hgb 13.2 Hct 39.3 MCV 89.9 MCH 30.3 MCHC 33.7 RDW 13.6 Plt Count 156 MPV 9.6 Sodium 139 Potassium 4.0 Chloride 104 Carbon Dioxide 30 Anion Gap 6 L BUN 14 Creatinine 0.8 Creat Clearance w eGFR 99.29 Random Glucose 123 H Calcium 9.0 Phosphorus 3.4 Magnesium 1.8 Total Bilirubin 0.8 AST 52 H ALT 75 H Alkaline Phosphatase 90 Total Protein 6.4 Albumin 3.3 L Active Medications Generic Name Dose Route Start Last Admin Trade Name Freq PRN Reason Stop Dose Admin Acetaminophen 650 mg 12/27/18 15:45 12/28/18 09:07 Tylenol - PO 650 mg Q6H ABENA Administration Albuterol Sulfate 1 puff 12/27/18 14:56 Ventolin Hfa Inhaler - IH Q6H PRN ASTHMA Albuterol/Ipratropium 1 amp 12/27/18 14:56 Duoneb - NEB Q4H PRN SHORTNESS OF BREATH Baclofen 10 mg 12/28/18 10:00 12/28/18 09:07 Lioresal - PO 10 mg DAILY ABENA Administration Cyclobenzaprine HCl 5 mg 12/27/18 14:56 12/27/18 21:17 Flexeril - PO 5 mg Q8H PRN Administration BACK PAIN Docusate Sodium 100 mg 12/27/18 22:00 12/28/18 13:48 Colace - PO 100 mg TID ABENA Administration Duloxetine HCl 20 mg 12/27/18 22:00 12/28/18 09:08 Cymbalta - PO 20 mg BID ABENA Administration Ferrous Sulfate 325 mg 12/28/18 10:00 12/28/18 09:07 Feosol - PO 325 mg DAILY ABENA Administration Folic Acid 1 mg 12/28/18 10:00 12/28/18 09:07 Folic Acid - PO 1 mg DAILY ABENA Administration Heparin Sodium (Porcine) 5,000 unit 12/27/18 22:00 12/28/18 13:49 Heparin - SQ 5,000 unit TID ABENA Administration Cefazolin Sodium 1 gm in 50 mls @ 100 mls/hr 12/27/18 18:00 12/28/18 09:11 Ancef 1 Gm Premixed Ivpb - IVPB 12/28/18 17:59 100 mls/hr Q8H-IV ABENA Administration Lactated Ringer's 1,000 ml in 1,000 mls @ 125 mls/hr 12/27/18 14:45 12/27/18 19:00 Lactated Ringers Solution IV 125 mls/hr ASDIR ABENA Administration Ondansetron HCl 4 mg 12/27/18 14:41 Zofran Injection IVPUSH Q6H PRN NAUSEA Oxycodone HCl 10 mg 12/28/18 10:00 12/28/18 09:07 Oxycontin - PO 10 mg BID ABENA Administration Oxycodone HCl 5 mg 12/28/18 12:00 Roxicodone - PO Q3H PRN PAIN LEVEL 1 - 3 Oxycodone HCl 15 mg 12/28/18 12:00 Roxicodone - PO Q4H PRN PAIN LEVEL 7 - 10 Oxycodone HCl 10 mg 12/28/18 01:50 12/28/18 01:53 Roxicodone - PO 10 mg Q3H PRN Administration PAIN LEVEL 4 - 6 -Lumbar MRI: (12/08/18): L3-L4 minimal disc bulge and a tiny central posterior annular tear without nerve root impingement. Interval moderate right paracentral disc herniation/protrusion deforming the thecal sac and impinging the right L5 nerve root. L5-S1 minimal left paracentral disc bulge reaching left S1 nerve root without gross impingement. -Lumbar MRI (12/26/18): Sacralization of L5. Degenerative disc disease lumbosacral spine predominant L3-L4, L4-L5 with straightening of lordosis. L4- L5 narrowing of disc space with large midline herniation with extruded disc material midline lateralizing toward the right obliterating the right L4-L5 recess with mass effect on right L5 nerve root. L3-L4 small disc protrusion lateralizing toward the right. ASSESSMENT/PLAN: Patient is a 58 year old male with past medical history of chronic low back pain , kidney stones, hepatitis C, and emphysema, presented to the ED due to worsening low back pain accompanied by weakness and pain with ambulating that started last month. #Worsening low back pain 2/2 L3-S1 disc herniation with nerve impingement -Neurosurgery (Dr. Orellana) consulted. -POD 1: L4-L5 laminectomy with fusion. -Regular diet -pain control with PO oxycodone PRN -Incentive spirometry -JUAN drain 210cc -Leukocytosis likely stress response post-op. Will continue to monitor -Physical therapy -DVT prophylaxis -TLSO brace when OOB #COPD: chronic, asymptomatic -Albuterol IH BID -Duonebs q4h PRN #Hepatitis C: chronic -Will monitor LFTs -to follow up as outpatient #FEN -Not on any standing fluids -Electrolytes wnl, routine bmp monitoring -regular diet #Prophylaxis -Heparin 5000units tid -SCDs #Disposition -full code -med-surg Visit type - Emergency Visit Emergency Visit: Yes ED Registration Date: 12/26/18 Care time: The patient presented to the Emergency Department on the above date and was hospitalized for further evaluation of their emergent condition. - New Patient This patient is new to me today: No - Critical Care Critical Care patient: No
[2018-12-28] MEDS: LACTATED RINGERS SOLUTION 1,000 ML/1,000 ML INFUS.BAG IV SCH (22:27)
[2018-12-29] MEDS: ACETAMINOPHEN 325 MG TABLET (FP) PO SCH ×2 (03:56→10:48)
[2018-12-29] MEDS: DOCUSATE SODIUM 100 MG CAPSULE (FP) PO SCH (06:05)
[2018-12-29] MEDS: HEPARIN NA (PORCINE) 5,000 UNITS/ML 1ML VIAL SQ SCH (06:05)
[2018-12-29 06:07] LABS: BASO % 0.9 % (0-2.0); EOS % 0.6 % (0-4.5); HEMATOCRIT 38.3 % (35.4-49); HEMOGLOBIN 13.1 GM/dL (11.7-16.9); LYMPH % 22.2 % (8-40); MCH 31.2 pg (25.7-33.7); MCHC 34.3 g/dl (32.0-35.9); MEAN CELL VOLUME 90.9 fl (80-96); MONO % 8.3 % (3.8-10.2); PLATELET COUNT 133 K/MM3 (134-434); RBC 4.22 M/mm3 (4.00-5.60)
[2018-12-29 06:32] LABS: ANION GAP 5 MMOL/L (8-16); BLOOD UREA NITROGEN 17 mg/dL (7-18); CALCIUM 8.6 mg/dL (8.5-10.1); CHLORIDE 105 mmol/L (98-107); CO2 28 mmol/L (21-32); CREATININE 0.8 mg/dL (0.55-1.3); GLUCOSE,RANDOM 143 mg/dL (74-106); MAGNESIUM 1.7 mg/dL (1.8-2.4); PHOSPHOROUS 2.6 mg/dL (2.5-4.9); POTASSIUM 3.9 mmol/L (3.5-5.1); SODIUM 138 mmol/L (136-145)
[2018-12-29] MEDS ORDERED: MAGNESIUM OXIDE 400 MG TABLET (FP) PO ONE (07:54)
--- NOTE | 2018-12-29 08:58 | PN ---
Progress Note (short form) - Note Progress Note: Surgery POD #2 L4-L5 PLIF patient seen and examined at bedside with no complaints. Patient has been tolerating his diet and denies any CP, SOB, N/V/D, fever or chills. He states overall he feels well and is anxious to go home. 2 Vital Signs Temp 98.1 F 04/ 05:55 Pulse 83 12/29/18 05:55 Resp 20 12/29/18 05:55 BP 110/61 12/29/18 05:55 Pulse Ox 100 12/27/18 15:45 Intake & Output 12/28/18 12/28/18 12/29/18 11:59 23:59 11:59 Intake Total 100 100 300 Output Total 490 1020 20 Balance -390 -920 280 Weight 131 lb Intake: Oral 100 100 300 Output: Drainage 90 120 20 Lower Back 90 120 20 Urine 400 900 [place] 400 400 Void 500 Other: Voiding Method Indwelling Catheter Urinal Urinal # Unmeasured Voids Void 1 Bowel Movement No Height 6 ft 1 in Body Mass Index (BMI) 17.2 CBC, BMP 12/29/18 05:55 12/29/18 05:55 PE: A&Ox3, NAD unlabored resp on RA lumbar spine: incision c/d/i with surrounding tissue intact. no edema or tracking erythema. no evidence of d/c. Drain removed with tip fully intact. B/L LE compartments soft, supple and non-tender to palpation with +2 dp pulses. Problem List - Problems (1) S/P lumbar spinal fusion Assessment/Plan: POD #2 PLIF doing well with WBC trending down and no evidence of infection. 1) OOB with TLSO and PT 2) DVT prophylaxis 3) F/u with PCP as outpatient 4) d/c home otday 5) F/u with Dr Orellana as scheduled. Code(s): Z98.1 - ARTHRODESIS STATUS
[2018-12-29] MEDS ORDERED: PT OWN MED DRAWER 7, Y5N ONE (10:45)
[2018-12-29] MEDS: oxyCODONE HCL 10 MG SUSTAINED ACTING TABLET PO SCH (10:48)
[2018-12-29] MEDS: BACLOFEN 10 MG TABLET (FP) PO SCH (10:48)
[2018-12-29] MEDS: FERROUS SO4 325 MG TABLET (FP) PO SCH (10:49)
[2018-12-29] MEDS: FOLIC ACID 1 MG TABLET (FP) PO SCH (10:49)
[2018-12-29] MEDS: DULoxetine HCL 20 MG CAPSULE.DR (FP) PO SCH (10:49)
[2018-12-29 12:01] VITALS: BP 120/69; PULSE 81; TEMP 98.2
--- NOTE | 2018-12-29 13:08 | PN ---
Teaching Attending Note Name of Resident: Nancy Castañeda ATTENDING PHYSICIAN STATEMENT I saw and evaluated the patient. I reviewed the resident's note and discussed the case with the resident. I agree with the resident's findings and plan as documented. SUBJECTIVE: OBJECTIVE: Vital Signs Period Temp Pulse Resp BP Sys/Piper Pulse Ox Last 24 Hr 98.0 F-98.9 F 72-83 18-20 110-120/58-69 96 Laboratory Results - last 24 hr 12/29/18 12/29/18 05:55 05:55 WBC 12.0 H RBC 4.22 Hgb 13.1 Hct 38.3 MCV 90.9 MCH 31.2 MCHC 34.3 RDW 14.0 Plt Count 133 L MPV 9.0 Absolute Neuts (auto) 8.2 H Neutrophils % 68.0 D Lymphocytes % 22.2 D Monocytes % 8.3 Eosinophils % 0.6 Basophils % 0.9 Nucleated RBC % 0 Sodium 138 Potassium 3.9 Chloride 105 Carbon Dioxide 28 Anion Gap 5 L BUN 17 Creatinine 0.8 Creat Clearance w eGFR 99.29 Random Glucose 143 H Calcium 8.6 Phosphorus 2.6 Magnesium 1.7 L ASSESSMENT AND PLAN:
--- NOTE | 2018-12-29 17:05 | DS ---
Physical Exam: SUBJECTIVE: Patient seen and examined at bedside this morning. No acute events overnight. Patient feeling well this morning. Evaluated by surgery and drain removed. OBJECTIVE: Vital Signs Temperature 98.2 F 12/29/18 10:00 Pulse Rate 81 12/29/18 10:00 Respiratory Rate 18 12/29/18 10:00 Blood Pressure 120/69 12/29/18 10:00 O2 Sat by Pulse Oximetry (%) 96 12/29/18 09:00 PHYSICAL EXAM GENERAL: Awake, alert, and fully oriented, in no acute distress. HEAD: Normal with no signs of trauma. EYES: PERRLA, EOMI, sclera anicteric, conjunctiva clear. EARS, NOSE, THROAT:oropharynx clear without exudates. Moist mucous membranes. NECK: Normal range of motion, supple without lymphadenopathy, JVD, or masses. LUNGS: Breath sounds equal, clear to auscultation bilaterally. HEART: Regular rate and rhythm, normal S1 and S2 without murmur, rub or gallop. ABDOMEN: Soft, nontender, not distended, normoactive bowel sounds. Refused rectal exam. MUSCULOSKELETAL: Normal range of motion of all joints. +clean dry dressing at the back. UPPER EXTREMITIES: 2+ pulses, warm, well-perfused. No peripheral edema. LOWER EXTREMITIES: 2+ pulses, warm, well-perfused. No calf tenderness. No peripheral edema. NEUROLOGICAL: Cranial nerves II-XII intact. Normal speech. Motor strength 5/5 bilaterally, DTRs +2, sensation intact. PSYCHIATRIC: Cooperative. Good eye contact. Appropriate mood and affect. SKIN: Warm, dry, normal turgor. LABS Laboratory Results - last 24 hr 12/29/18 12/29/18 05:55 05:55 WBC 12.0 H RBC 4.22 Hgb 13.1 Hct 38.3 MCV 90.9 MCH 31.2 MCHC 34.3 RDW 14.0 Plt Count 133 L MPV 9.0 Absolute Neuts (auto) 8.2 H Neutrophils % 68.0 D Lymphocytes % 22.2 D Monocytes % 8.3 Eosinophils % 0.6 Basophils % 0.9 Nucleated RBC % 0 Sodium 138 Potassium 3.9 Chloride 105 Carbon Dioxide 28 Anion Gap 5 L BUN 17 Creatinine 0.8 Creat Clearance w eGFR 99.29 Random Glucose 143 H Calcium 8.6 Phosphorus 2.6 Magnesium 1.7 L -Lumbar MRI: (12/08/18): L3-L4 minimal disc bulge and a tiny central posterior annular tear without nerve root impingement. Interval moderate right paracentral disc herniation/protrusion deforming the thecal sac and impinging the right L5 nerve root. L5-S1 minimal left paracentral disc bulge reaching left S1 nerve root without gross impingement. -Lumbar MRI (12/26/18): Sacralization of L5. Degenerative disc disease lumbosacral spine predominant L3-L4, L4-L5 with straightening of lordosis. L4- L5 narrowing of disc space with large midline herniation with extruded disc material midline lateralizing toward the right obliterating the right L4-L5 recess with mass effect on right L5 nerve root. L3-L4 small disc protrusion lateralizing toward the right. HOSPITAL COURSE: Date of Admission:12/26/18 Date of Discharge: 12/29/18 Patient is a 58 year old male with past medical history of chronic low back pain , kidney stones, hepatitis C, and emphysema, presented to the ED due to worsening low back pain accompanied by weakness and pain with ambulating that started last month. Neurosurgery was consulted and recommended surgery. Repeat MRI of lumbar spine was done. Patient underwent L4-L5 laminectomy with fusion, and tolerated the procedure well. On post-op day 2, there was minimal drainage on the JUAN drain and drain removed by surgery. Patient was discharged with instructions to follow up with Dr. Orellana and PCP. Minutes to complete discharge: 38 Discharge Summary Reason For Visit: HERNIATED LUMBAR INTERVERTEBRAL DISC Condition: Improved - Instructions Diet, Activity, Other Instructions: Your visit You were admitted to the hospital because of worsening back pain. MRI revealed you had a herniated disc. You underwent surgery with Dr. Orellana. Medications Continue your home medications as prescribed. Follow up Please follow up with the neurosurgeon (Dr. Orellana). See below for further instructions. Please follow up with your pain management doctor (Dr. Guardado) Please follow up with your primary care physician within 1 week. You can call the resident medical clinic at [phone] to schedule an appointment. Additional info Call 911 or go the ED if with any worsening fever, chills, headache, dizziness, chest pain, shortness of breath, weakness, numbness or any new concerns noted. Dr. Orellana's Post Operative Instructions Physical Activity Resume your normal everyday activity as tolerated. No heavy lifting or exercise until seen by your surgeon. You may walk unlimited amounts and climb stairs. You may resume driving the car when you feel safe and comfortable behind the wheel and you are no longer wearing your brace. Do not operate a vehicle while taking narcotic medication. Brace If you had back surgery, wear TLSO Brace whenever out of bed. May remove to sleep and shower. If you had neck surgery, wear surgical collar 23 hr/day. Remove to shower only. Wound Care Keep your incision clean, dry and covered at all times. Apply an occlusive dressing (Saran wrap or Tegaderm) when showering to avoid getting your incision wet. Do not submerge incision or apply ointments or creams. The leatha will be removed in the office in 10-14 days post-op. Diet There are no dietary restrictions. Eat healthy, high-fiber foods. Drink 6-8 glasses of liquid each day. This will assist in keeping your bowels regular. Pain Management You may take Tylenol or acetaminophen. Do not exceed 4gm in a day. Any pain prescription medication ordered should be taken as prescribed for moderate to severe pain. Call Dr Mendoza for any of the following: Severe pain not relieved by medication Fever of 101 or higher Excessive bleeding or drainage on dressing Inability to urinate Any chest pain or shortness of breath, seek Emergency Care. Call the office to confirm a post-operative appointment for 2-3 weeks post-op Juan Antonio Orellana MD [facility] [address] [place] [address]. [place] [address] [address]errals: [facility] [place] [Provider Group] Juan Antonio Orellana MD, FAANS [Staff Physician] - Ag Campoverde MD [Staff Physician] - Disposition: HOME - Home Medications Comprehensive Discharge Medication List: Ambulatory Orders Albuterol Sulfate Inhaler - [Ventolin HFA Inhaler -] 1 inh IH QID PRN 10/05/13 Baclofen [Lioresal -] 10 mg PO DAILY 12/17/18 Cyclobenzaprine HCl [Flexeril -] 5 mg PO TID PRN #12 tablet 12/17/18 Duloxetine HCl [Cymbalta -] 20 mg PO BID 12/17/18 Docusate Sodium [Colace -] 100 mg PO TID capsule 12/28/18 Acetaminophen [Tylenol .Regular Strength -] 650 mg PO Q6H #30 tablet 12/29/18 oxyCODONE SR [Oxycontin] 1 tab PO Q8H #15 tab.er.12h MDD 3 tabs 12/29/18 This patient is new to me today: No Emergency Visit: Yes ED Registration Date: 12/26/18 Care time: The patient presented to the Emergency Department on the above date and was hospitalized for further evaluation of their emergent condition. Critical Care patient: No - Discharge Referral Referred to [facility] No
== END 2018-12-29 12:25 | disposition home or self-care (01) | DRG 454 ==
LOC: JER 09:47 → JERBED 10:58 → J8W 14:27
PROVIDERS: ADMIT Internal Medicine; ATTEND Internal Medicine
PROC: 0SG0071 Fusion of Lumbar Vertebral Joint with Autologous Tissue Substitute, Posterior Approach, Posterior Column, Open Approach (ICD-10-PCS; 2018-12-27)
PROC: 0SB20ZZ Excision of Lumbar Vertebral Disc, Open Approach (ICD-10-PCS; 2018-12-27)
PROC: 0JX70ZZ Transfer Back Subcutaneous Tissue and Fascia, Open Approach (ICD-10-PCS; 2018-12-27)
PROC: B01BZZZ Fluoroscopy of Spinal Cord (ICD-10-PCS; 2018-12-27)
PROC: 0SG00AJ Fusion of Lumbar Vertebral Joint with Interbody Fusion Device, Posterior Approach, Anterior Column, Open Approach (ICD-10-PCS; principal; 2018-12-27 14:00)
DX: M51.16 Intervertebral disc disorders with radiculopathy, lumbar region (principal); Z68.1 Body mass index [BMI] 19.9 or less, adult; J44.9 Chronic obstructive pulmonary disease, unspecified; B18.2 Chronic viral hepatitis C; M51.26 Other intervertebral disc displacement, lumbar region; R63.6 Underweight
CPT/HCPCS: 36415; 71045-TC-FY; 72131-TC; 72148-TC; 76000-TC-FY; 80048; 80053; 80307; 81003; 83735; 84100; 85025; 85027; 85610; 85730; 86140; 86850; 86900; 86901; 87077; 87086; 93005; 93010; 94760; 97116-GP; 97161-GP; 99282-25; J0475; J1644

== ENCOUNTER 2019-03-08 13:27 | Emergency (ER) | payer OTHER ==
--- NOTE | 2019-03-08 13:30 | PDOC ---
History of Present Illness - General Chief Complaint: Pain, Acute Stated Complaint: R/O KIDNEY STONES Time Seen by Provider: 03/08/19 13:30 - History of Present Illness Initial Comments: 58yo M with PMH of kidney stones with previous lithotripsy, HCV, chronic back pain with L4/L5 disc herniation who presents with "kidney stone pain." The pain started last night, is rated 10/10, and is described as "cramping." It radiates from his right testicle up to his abdomen. Patient also reports nausea and NBNB vomiting such that he is unable to tolerate po intake. This pain feels exactly as his kidney stones do and this does not feel like his back pain. Has not been able to urinate today which he states is typical for his kidney stones. Patient last took oxycodone for his back pain last night with no relief of his kidney stone pain. Does not follow with a urologist. Denies fever, but endorses chills. No chest pain or shortness of breath. PCP: unable to name the physician, but sees someone at [address] [place] [address] Past History - Past Medical History Allergies/Adverse Reactions: Allergies Allergy/AdvReac Type Severity Reaction Status Date / Time No Known Drug Allergies Allergy Verified 03/08/19 13:32 Home Medications: Ambulatory Orders Albuterol Sulfate Inhaler - [Ventolin HFA Inhaler -] 1 inh IH QID PRN 10/05/13 Baclofen [Lioresal -] 10 mg PO DAILY 12/17/18 Cyclobenzaprine HCl [Flexeril -] 5 mg PO TID PRN #12 tablet 12/17/18 Duloxetine HCl [Cymbalta -] 20 mg PO BID 12/17/18 Docusate Sodium [Colace -] 100 mg PO TID capsule 12/28/18 Acetaminophen [Tylenol .Regular Strength -] 650 mg PO Q6H #30 tablet 12/29/18 oxyCODONE SR [Oxycontin] 1 tab PO Q8H #15 tab.er.12h MDD 3 tabs 12/29/18 Ibuprofen [Motrin -] 600 mg PO QID PRN #60 tablet 03/08/19 Ondansetron [Zofran Odt -] 4 mg SL TID #12 od.tablet 03/08/19 Tamsulosin HCl [Flomax] 0.4 mg PO DAILY #30 capsule 03/08/19 Asthma: Yes (EMPHYSEMA) COPD: No GI Disorders: Yes (hepatitis C) Disorders: Yes (Kidney Stones) Kidney Stones: Yes Liver Disease: Yes (HEP C) Psychiatric Problems: Yes (DEPRESSION) - Immunization History Immunization Up to Date: Yes - Suicide/Smoking/Psychosocial Hx Smoking Status: Yes Smoking History: Current some day smoker Years of Tobacco Use: 40 Have you smoked in the past 12 months: No Number of Cigarettes Smoked Daily: 10 'Breaking Loose' booklet given: 12/26/18 Hx Alcohol Use: No Drug/Substance Use Hx: No Substance Use Type: Marijuana Hx Substance Use Treatment: Yes Review of Systems - Review of Systems Comments:: Constitutional: no fever, +chills HEENT: no throat pain, no dysphagia Cardiovascular: no chest pain, no palpitations Respiratory: no cough, no shortness of breath Gastrointestinal: +abdominal pain, +nausea Genitourinary: no dysuria, no frequency Musculoskeletal: no myalgia, no arthralgia Skin: no rash, no itching Neurologic: no headache, no weakness *Physical Exam - Physical Exam Comments: General: Awake, alert, and fully oriented, writhing in bed, diaphoretic Head: No signs of trauma Eyes: EOMI, sclera anicteric ENT: Dry mucus membranes Neck: Normal ROM, supple Lungs: Lungs clear, Normal breath sounds Cardio: Regular rhythm, S1 and S2 present Abdomen: Soft, nontender, nondistended. No guarding, no rebound, no masses. +R. CVA tenderness, no L. CVA tenderness : Normal testicles without discoloration or lesion; not high-riding Extremities: Normal range of motion, Distal pulses present SKIN: Warm, Dry, normal turgor Neurologic: Cranial nerves II through XII grossly intact. Normal speech ED Treatment Course - LABORATORY CBC & Chemistry Diagram: 03/08/19 14:01 03/08/19 14:01 Medical Decision Making - Medical Decision Making 58yo M with PMH of kidney stones with previous lithotripsy, HCV, chronic back pain with L4/L5 disc herniation who presents with "kidney stone pain." Labs CT Spiral to assess for stone Toradol, Zofran, Morphine, Fluids DDX including but not limited to nephrolithiasis, back pain exacerbation, UTI, pyelonephritis, testicular torsion, secondary gain 03/08/19 13:30 Pain is now 4/10 but "coming back" 03/08/19 15:40 CBC WBC 9.1 K/mm3 (4.0-10.0) 03/08/19 14:01 RBC 4.76 M/mm3 (4.00-5.60) 03/08/19 14:01 Hgb 14.7 GM/dL (11.7-16.9) 03/08/19 14:01 Hct 43.4 % (35.4-49) 03/08/19 14:01 MCV 91.2 fl (80-96) 03/08/19 14:01 MCH 31.0 pg (25.7-33.7) 03/08/19 14:01 MCHC 34.0 g/dl (32.0-35.9) 03/08/19 14:01 RDW 13.8 % (11.9-15.9) 03/08/19 14:01 Plt Count 213 K/MM3 (134-434) D 03/08/19 14:01 MPV 8.8 fl (7.5-11.1) 03/08/19 14:01 Absolute Neuts (auto) 5.1 K/mm3 (1.5-8.0) 03/08/19 14:01 Neutrophils % 56.1 % (42.8-82.8) 03/08/19 14:01 Lymphocytes % 35.2 % (8-40) D 03/08/19 14:01 Monocytes % 6.4 % (3.8-10.2) 03/08/19 14:01 Eosinophils % 1.0 % (0-4.5) 03/08/19 14:01 Basophils % 1.3 % (0-2.0) 03/08/19 14:01 Nucleated RBC % 0 % (0-0) 03/08/19 14:01 No anemia or leukocytosis CMP Sodium 143 mmol/L (136-145) 03/08/19 14:01 Potassium 3.5 mmol/L (3.5-5.1) 03/08/19 14:01 Chloride 111 mmol/L (98-107) H 03/08/19 14:01 Carbon Dioxide 26 mmol/L (21-32) 03/08/19 14:01 Anion Gap 7 MMOL/L (8-16) L 03/08/19 14:01 BUN 14.2 mg/dL (7-18) 03/08/19 14:01 Creatinine 1.1 mg/dL (0.55-1.3) 03/08/19 14:01 Est GFR (CKD-EPI)AfAm 85.31 03/08/19 14:01 Est GFR (CKD-EPI)NonAf 73.61 03/08/19 14:01 Random Glucose 140 mg/dL (74-106) H 03/08/19 14:01 Calcium 9.3 mg/dL (8.5-10.1) 03/08/19 14:01 Total Bilirubin 0.5 mg/dL (0.2-1) 03/08/19 14:01 AST 19 U/L (15-37) 03/08/19 14:01 ALT 28 U/L (13-61) 03/08/19 14:01 Alkaline Phosphatase 124 U/L (45-117) H 03/08/19 14:01 Total Protein 7.4 g/dl (6.4-8.2) 03/08/19 14:01 Albumin 4.0 g/dl (3.4-5.0) 03/08/19 14:01 Normal Cr function Electrolytes WNL UA with trace blood and negative for infection Pain now rated 3-410 03/08/19 18:23 CT report: "Clinical information left flank pain, history of nephrolithiasis Multiplanar imaging was performed. No intravenous or enteric contrast was administered. An approximately 4 x 3 mm right ureteral calculus is seen immediately above the level of the ureterovesical junction. There is resultant mild to moderate hydroureteronephrosis. Right perirenal soft tissue stranding/ fluid is noted secondary to acute obstruction. A 2 mm nonobstructing left renal calyceal calculus is noted. Mild prostate enlargement. Small hepatic and splenic calcifications are seen probably representing granulomas. The pancreas, gallbladder, adrenal glands and kidneys demonstrate no discrete noncontrast pathology. There is no aortic aneurysm. No definite lymphadenopathy is seen on the basis of CT size criteria. The appendix appears unremarkable. No gross noncontrast small bowel pathology is identified. There is no evidence of pneumoperitoneum, free intraperitoneal fluid or bowel obstruction. Status post multilevel lower lumbar spine surgery. Colonic fecal retention which is probably moderate. Impression: An approximately 4 x 3 mm distal right ureteral calculus is noted adjacent to the ureterovesical junction with resultant mild to moderate hydronephrosis. 2 mm nonobstructing left renal calculus. Atherosclerotic vascular calcifications are seen which may be somewhat prominent. Correlate with clinical risk factors. " Given normal Cr and UA, plan to discharge home with outpatient urology follow- up for nephrolithiasis *DC/Admit/Observation/Transfer Diagnosis at time of Disposition: Nephrolithiasis - Discharge Dispostion Disposition: HOME Condition at time of disposition: Stable - Prescriptions Prescriptions: Ibuprofen [Motrin -] 600 mg PO QID PRN #60 tablet PRN Reason: Pain Ondansetron [Zofran Odt -] 4 mg SL TID #12 od.tablet Tamsulosin HCl [Flomax] 0.4 mg PO DAILY #30 capsule - Referrals Referrals: Danny Trinidad MD [Staff Physician] - - Patient Instructions Printed Discharge Instructions: Kidney Stones -- Adult Additional Instructions: You came into the ED for abdominal pain. CT scan shows a kidney stone which explains your pain. Since labs were within normal limits, you do not need to be admitted to the hospital. Prescriptions sent to your pharmacy. Take as instructed. Follow-up with your primary care doctor this week Call and make an appointment. Your workup is not complete until you do so. We have referred you to a urologist to discuss this ED visit and to further evaluate your symptoms. Call tomorrow and make an appointment for this week. Your workup is not complete until you do so. Strain your urine to catch the stone. If you pass the stone, bring it to the urology appointment. Keep hydrated with plenty of water, especially in this hot weather. Immediate medical attention is required if you have: you develop worsening pain , high fevers, persistent nausea, vomiting, or any new or concerning symptoms. If you think you are having an emergency, call for emergency medical services or present to the emergency department right away. - Post Discharge Activity
[2019-03-08 13:32] VITALS: BMI 18.3
[2019-03-08] MEDS ORDERED: ONDANSETRON 4 MG/2 ML VIAL ONE (13:39)
[2019-03-08] MEDS ORDERED: KETOROLAC TROMETHAMINE 30 MG/1 ML VIAL ONE (13:39)
[2019-03-08] MEDS ORDERED: KETOROLAC TROMETHAMINE 30 MG/1 ML VIAL IVPUSH ONE (13:44)
[2019-03-08] MEDS ORDERED: ONDANSETRON 4 MG/2 ML VIAL IVPUSH ONE (13:44)
[2019-03-08] MEDS ORDERED: SODIUM CHLORIDE 1,000 ML IV STA (13:46)
[2019-03-08] MEDS ORDERED: morphine CARPU-JECT 4 MG/1 ML DISP.SYRIN IVPUSH ONE (13:47)
[2019-03-08] MEDS ORDERED: morphine SULFATE 4 MG/ML VIAL ONE (14:03)
[2019-03-08 14:18] LABS: BASO % 1.3 % (0-2.0); HEMATOCRIT 43.4 % (35.4-49); HEMOGLOBIN 14.7 GM/dL (11.7-16.9); LYMPH % 35.2 % (8-40); MEAN CELL VOLUME 91.2 fl (80-96); MEAN PLT VOLUME 8.8 fl (7.5-11.1); MONO % 6.4 % (3.8-10.2); NEUT % 56.1 % (42.8-82.8); PLATELET COUNT 213 K/MM3 (134-434); RBC 4.76 M/mm3 (4.00-5.60); RDW 13.8 % (11.9-15.9); WHITE BLOOD COUNT 9.1 K/mm3 (4.0-10.0)
[2019-03-08 14:46] LABS: BILIRUBIN,TOTAL 0.5 mg/dL (0.2-1); BLOOD UREA NITROGEN 14.2 mg/dL (7-18); CALCIUM 9.3 mg/dL (8.5-10.1); CREATININE 1.1 mg/dL (0.55-1.3); POTASSIUM 3.5 mmol/L (3.5-5.1); TOT PROT 7.4 g/dl (6.4-8.2)
--- NOTE | 2019-03-08 15:52 | PDOC ---
Documentation entered by Kenroy Mir SCRIBE, acting as scribe for Walt Seo MD. Walt Seo MD: This documentation has been prepared by the Clarke paniagua Joel, SCRIBE, under my direction and personally reviewed by me in its entirety. I confirm that the documentation accurately reflects all work, treatment, procedures, and medical decision making performed by me. Attending Attestation - Resident Resident Name: Fatou Albert - ED Attending Attestation I have performed the following: I have examined & evaluated the patient, The case was reviewed & discussed with the resident, I agree w/resident's findings & plan, Exceptions are as noted - HPI HPI: 03/08/19 14:20 The patient is a 58 year old male with a significant PMH of nephrolithiasis, renal calculi, emphysema, hepatitis C,and L4-L5 herniation with residual chronic back pain who presents to the emergency department for evaluation of R flank pain and difficulty urinating. He describes the pain as radiating from his R flank to his groin. The patient also notes about 5 episodes of NBNB vomiting and associated chills. He states his symptoms are consistent with his past renal calculi. The patient denies chest pain, shortness of breath, headache and dizziness. Denies fever, diarrhea and constipation. Denies dysuria, frequency, urgency and hematuria. Allergies: NKDA Past surgical history: None reported. Social history: Marijuana use. Current someday smoker. No reported alcohol use. - Physicial Exam PE: 03/08/19 15:51 "GENERAL: Awake, alert, and fully oriented, in no acute distress. HEAD: No signs of trauma EYES: PERRLA, EOMI, sclera anicteric, conjunctiva clear ENT: Auricles normal inspection, hearing grossly normal, nares patent, oropharynx clear without exudates. Moist mucosa NECK: Nontender, no stepoffs, Normal ROM, supple, no lymphadenopathy, JVD, or masses LUNGS: Breath sounds equal, clear to auscultation bilaterally. No wheezes, and no crackles HEART: Regular rate and rhythm, normal S1 and S2, no murmurs, rubs or gallops ABDOMEN: Soft, nontender, normoactive bowel sounds. No guarding, no rebound. No masses BACK: + R CVAT EXTREMITIES: Normal range of motion, no edema. No clubbing or cyanosis. No cords, erythema, or tenderness NEUROLOGICAL: Cranial nerves II through XII intact. 5/5 strength and sensation in all extremities, Normal speech, normal gait, normal cerebellar function SKIN: Warm, Dry, normal turgor, no rashes or lesions noted. - Medical Decision Making 03/08/19 15:51 58 M with R flank pain. Will evaluate for nephrolithiasis. - Labs, UA - CTAP non-con - IVF, pain control Labs wnl UA with + blood CT shows R ureteral stone Pt reassessed - pain well controlled Pt is well appearing, with normal vitals. Clinically stable for DC at this time. I discussed the physical exam findings, ancillary test results and final diagnoses with the patient. I answered all of the patient's questions. The patient was satisfied with the care received and felt comfortable with the discharge plan and treatment plan. The patient agrees to follow up with the primary care physician within 24-72 hours.
[2019-03-08] MEDS ORDERED: ACETAMINOPHEN 1000 MG/100 ML VIAL (NON FORMULARY) IVPB ONE (15:55)
[2019-03-08 16:05] LABS: EPI CELLS 0.7 /HPF (0-5/HPF); HYALINE CASTS 1 /lpf (0-8); URINE APPEARANCE CLEAR; URINE BACTERIA 63.1 /hpf (NEGATIVE); URINE BILIRUBIN NEGATIVE (NEGATIVE); URINE COLOR YELLOW; URINE GLUCOSE (UA) NEGATIVE (NEGATIVE); URINE KETONE TRACE (NEGATIVE); URINE LEUK ESTERASE NEGATIVE (NEGATIVE); URINE NITRITE NEGATIVE (NEGATIVE); URINE PROTEIN NEGATIVE (NEGATIVE); URINE RBC 7 /hpf (0-4); URINE WBC 1 /hpf (0-5)
[2019-03-08] MEDS ORDERED: ACETAMINOPHEN INJECTION 100 ML IVPB ONE (17:25)
[2019-03-08 17:47] VITALS: BP 168/85; PULSE 64; TEMP 98.1
== END 2019-03-08 19:03 | disposition home or self-care (01) ==
LOC: JER 13:27
PROC: 3E033NZ Introduction of Analgesics, Hypnotics, Sedatives into Peripheral Vein, Percutaneous Approach (ICD-10-PCS; principal; 2019-03-08)
PROC: 3E0333Z Introduction of Anti-inflammatory into Peripheral Vein, Percutaneous Approach (ICD-10-PCS; 2019-03-08)
PROC: 3E033GC Introduction of Other Therapeutic Substance into Peripheral Vein, Percutaneous Approach (ICD-10-PCS; 2019-03-08)
PROC: 3E0337Z Introduction of Electrolytic and Water Balance Substance into Peripheral Vein, Percutaneous Approach (ICD-10-PCS; 2019-03-08)
DX: N20.0 Calculus of kidney (principal)
CPT/HCPCS: 36415; 74176-TC; 80053; 81003; 85025; 87086; 99283-25; J0131; J7030

== ENCOUNTER 2019-04-05 21:09 | Inpatient (IN) | payer OTHER ==
--- NOTE | 2019-04-05 21:16 | PDOC ---
Rapid Medical Evaluation Time Seen by Provider: 04/05/19 21:16 Medical Evaluation: Allergies Allergy/AdvReac Type Severity Reaction Status Date / Time No Known Drug Allergies Allergy Verified 03/20/19 09:34 04/05/19 21:16 I have performed a brief in-person evaluation of this patient. The patient presents with a chief complaint of: R flank pain w/ n/v tonight. Seen here > 3 weeks ago for same, dx w/ 4x3mm distal R ureteral stone w/ hydro on CT. Was dc w/ meds, strainer and f/u but states he never f/u and did not notice stone at home. H/o renal stones w/ lithotripsy, HCV, chronic back pain Pertinent physical exam findings: zeferino sig uncomfortable, actively vomiting in emesis bag in triage I have ordered the following:labs/meds/CT The patient will proceed to the ED for further evaluation. 04/05/19 21:22 Discharge Disposition - Diagnosis Renal colic on right side - Referrals - Patient Instructions - Post Discharge Activity
[2019-04-05] MEDS ORDERED: ONDANSETRON 4 MG/2 ML VIAL IVPUSH ONE ×2 (21:18→23:57)
[2019-04-05] MEDS ORDERED: KETOROLAC TROMETHAMINE 30 MG/1 ML VIAL IVPUSH ONE (21:18)
[2019-04-05] MEDS ORDERED: SODIUM CHLORIDE 1,000 ML IV STA (21:18)
[2019-04-05 21:21] VITALS: BMI 17.8
[2019-04-05] MEDS ORDERED: ONDANSETRON 4 MG/2 ML VIAL ONE (21:28)
[2019-04-05] MEDS ORDERED: KETOROLAC TROMETHAMINE 30 MG/1 ML VIAL ONE (21:28)
[2019-04-05 21:51] LABS: BASO % 1.5 % (0-2.0); HEMATOCRIT 46.7 % (35.4-49); HEMOGLOBIN 15.8 GM/dL (11.7-16.9); MCH 30.8 pg (25.7-33.7); MCHC 33.9 g/dl (32.0-35.9); MEAN PLT VOLUME 9.2 fl (7.5-11.1); MONO % 10.2 % (3.8-10.2); NEUT % 58.3 % (42.8-82.8); PLATELET COUNT 150 K/MM3 (134-434); RBC 5.13 M/mm3 (4.00-5.60); RDW 14.3 % (11.9-15.9); WHITE BLOOD COUNT 9.3 K/mm3 (4.0-10.0)
[2019-04-05 22:41] LABS: ALBUMIN 3.8 g/dl (3.4-5.0); BILIRUBIN,TOTAL 0.9 mg/dL (0.2-1); BLOOD UREA NITROGEN 13.7 mg/dL (7-18); CALCIUM 8.8 mg/dL (8.5-10.1); CREATININE 1.3 mg/dL (0.55-1.3); POTASSIUM 4.3 mmol/L (3.5-5.1); TOT PROT 7.2 g/dl (6.4-8.2)
--- NOTE | 2019-04-05 22:44 | PDOC ---
History of Present Illness - General Chief Complaint: Nausea/Vomiting Stated Complaint: KIDNEY STONE Time Seen by Provider: 04/05/19 21:16 - History of Present Illness Initial Comments: 04/06/19 08:40 58yo M hx kidney stones, HCV, chronic back pain w/L4/L5 disc herniation presents from home c/o kidney stone. Pt states he had sudden onset intermittent sharp R-sided pain started today, located in R testicle/groin/RLQ. Pt states it is the exact same pain as prior kidney stone pain. Endorses NBNB vomiting all night and all day with PO intolerance to food and liquids. Endorses dysuria. Denies F/C, CP, SOB, LYONS, dizziness, hematuria, blood in stool, D/C, numbness/ tingling, weakness, trauma. No prior lithotripsy or interventions for stones, always passed on own. No urologist. PCP - Marilyn. Past History - Past Medical History Allergies/Adverse Reactions: Allergies Allergy/AdvReac Type Severity Reaction Status Date / Time No Known Drug Allergies Allergy Verified 04/06/19 00:52 Home Medications: Ambulatory Orders Albuterol Sulfate Inhaler - [Ventolin HFA Inhaler -] 1 inh IH QID PRN 10/05/13 Baclofen [Lioresal -] 10 mg PO DAILY 12/17/18 Cyclobenzaprine HCl [Flexeril -] 5 mg PO TID PRN #12 tablet 12/17/18 Duloxetine HCl [Cymbalta -] 20 mg PO BID 12/17/18 Docusate Sodium [Colace -] 100 mg PO TID capsule 12/28/18 Acetaminophen [Tylenol .Regular Strength -] 650 mg PO Q6H #30 tablet 12/29/18 oxyCODONE SR [Oxycontin] 1 tab PO Q8H #15 tab.er.12h MDD 3 tabs 12/29/18 Ibuprofen [Motrin -] 600 mg PO QID PRN #60 tablet 03/08/19 Ondansetron [Zofran Odt -] 4 mg SL TID #12 od.tablet 03/08/19 Tamsulosin HCl [Flomax] 0.4 mg PO DAILY #30 capsule 03/08/19 Asthma: Yes (EMPHYSEMA) COPD: No GI Disorders: Yes (hepatitis C) Disorders: Yes (Kidney Stones) Kidney Stones: Yes Liver Disease: Yes (HEP C) Psychiatric Problems: Yes (DEPRESSION) - Immunization History Immunization Up to Date: Yes - Suicide/Smoking/Psychosocial Hx Smoking Status: Yes Smoking History: Unknown if ever smoked Years of Tobacco Use: 40 Have you smoked in the past 12 months: No Number of Cigarettes Smoked Daily: 10 Information on smoking cessation initiated: No 'Breaking Loose' booklet given: 12/26/18 Hx Alcohol Use: No Drug/Substance Use Hx: No Substance Use Type: Marijuana Hx Substance Use Treatment: Yes Review of Systems - Review of Systems Comments:: 04/06/19 08:41 Constitutional: Negative for chills, fever, fatigue. HENT: Negative for sore throat, rhinorrhea, congestion. Eyes: Negative for visual disturbance. Respiratory: Negative for shortness of breath, cough, and wheezing. Cardiovascular: Negative for chest pain, palpitations, and leg swelling. Gastrointestinal: Positive for RLQ pain, nausea, and vomiting. Negative for blood in stool, constipation, diarrhea. Genitourinary: Positive for R testicular and groin pain, dysuria. Negative for flank pain, and hematuria. Musculoskeletal: Negative for myalgias, back pain, and neck pain. Skin: Negative for rash. Neurological: Negative for light-headedness, dizziness, syncope, weakness, numbness and headaches. Psychiatric/Behavioral: Negative for behavioral problems and confusion. *Physical Exam - Vital Signs Last Vital Signs Temp Pulse Resp BP Pulse Ox 98.0 F 98 H 16 162/92 100 04/05/19 21:17 04/05/19 21:17 04/05/19 21:17 04/05/19 21:17 04/05/19 21:17 - Physical Exam Comments: 04/06/19 08:42 Gen: Alert, NAD, uncomfortable-appearing. HEENT: PERRL, EOMI, MMM, NCAT. No conjunctival pallor. Sclera are non-icteric. Oropharynx is clear. CV: Regular rate and rhythm. No murmurs, rubs, or gallops. PULM: No resp distress. CTAB, no wheezes, rales, or rhonchi. ABD: soft, NT/ND, no rebound tenderness or guarding, no CVA tenderness. BACK: No TTP of c/t/l-spine. No step-offs or deformities. MSK: No bony deformities. 2+ pulses in all extremities. NEURO: AAOx3. PERRL. No gross CN deficits. Strength and sensation grossly intact throughout. EXTREMITIES: No cyanosis. No clubbing. No edema. No calf tenderness. PSYCH: Normal mood and thought pattern. SKIN: Warm and dry. Normal capillary refill. No rashes. No jaundice. Heart Score/ECG Review - ECG Impressions Comment:: 04/06/19 06:58 NSR, 65bpm, normal axis, TWI/flattening V2, no STEs. No significant changes compared to 12/26/18. ED Treatment Course - LABORATORY CBC & Chemistry Diagram: 04/05/19 21:45 04/05/19 21:45 - ADDITIONAL ORDERS Additional order review: Laboratory Results 04/05/19 21:45 Sodium 140 Potassium 4.3 Chloride 108 H Carbon Dioxide 25 Anion Gap 7 L BUN 13.7 Creatinine 1.3 Est GFR (CKD-EPI)AfAm 69.71 Est GFR (CKD-EPI)NonAf 60.14 Random Glucose 127 H Calcium 8.8 Total Bilirubin 0.9 AST 65 H ALT 65 H Alkaline Phosphatase 127 H Total Protein 7.2 Albumin 3.8 04/05/19 21:45 RBC 5.13 MCV 91.0 MCHC 33.9 RDW 14.3 MPV 9.2 Neutrophils % 58.3 Lymphocytes % 28.0 D Monocytes % 10.2 Eosinophils % 2.0 D Basophils % 1.5 - Medications Given in the ED: ED Medications Discontinued Medications Generic Name Dose Route Start Last Admin Trade Name Freq PRN Reason Stop Dose Admin Ketorolac Tromethamine 30 mg 04/05/19 21:18 04/05/19 21:46 Toradol Injection - IVPUSH 04/05/19 21:19 30 mg ONCE ONE Administration Ondansetron HCl 4 mg 04/05/19 21:18 04/05/19 21:46 Zofran Injection IVPUSH 04/05/19 21:19 4 mg ONCE ONE Administration Medical Decision Making - Medical Decision Making 58yo M hx kidney stones, HCV, chronic back pain w/L4/L5 disc herniation presents from home c/o kidney stone. Pt states he had sudden onset intermittent sharp R-sided pain started today, located in R testicle/groin/RLQ. Pt states it is the exact same pain as prior kidney stone pain. Endorses NBNB vomiting all night and all day with PO intolerance to food and liquids. Endorses dysuria. Denies F/C, CP, SOB, LYONS, dizziness, hematuria, blood in stool, D/C, numbness/ tingling, weakness, trauma. No prior lithotripsy or interventions for stones, always passed on own. No urologist. PCP - Marilyn. Hemodynamically stable, afebrile, benign abdomen. Most likely kidney stone due to consistency with prior stones and stone on CT 1 month ago. Due to worsening pain and vomiting, obtain CTAP and CMP to evaluate for stone and obstruction, and assess kidney function. Dysuria suggests possible UTI - assess with UA/UC. Low concern for other GI etiology due to presentation and hx and benign abdomen, but consider other GI etiologies such as diverticulitis and cholecystitis and assess with CTAP and labs. -UA/UC, CBC, CMP -CTAP -Toradol and Zofran given up front -Dispo: possible admission for intractable pain and vomiting pending w/u 04/06/19 00:06 CTAP: in comparison to 03/08/19, a 5x3mm calculus now visualized at R UV junction , previously positioned within distal ureter adjacent to UV junction. Hydronephrosis mild to moderate without obvious interval change. 2mm nonobstructing L renal calculus. Labs reviewed. Cr 1.3. WBC 9.3. UA: trace ketones, trace blood, 5 RBC, no sign of UTI. Pt still in pain and throwing up in bed. Give morphine and zofran. Paged Urologist. 04/06/19 00:12 Multiple calls to Urology [facility]. Waiting for response. [facility] admitting. Pt sleeping comfortably. Turned over to admitting team. 04/06/19 08:40 *DC/Admit/Observation/Transfer Diagnosis at time of Disposition: Renal colic on right side - Discharge Dispostion Condition at time of disposition: Stable Decision to Admit order: Yes - Referrals - Patient Instructions - Post Discharge Activity
[2019-04-05 23:11] LABS: EPI CELLS 0.7 /HPF (0-5/HPF); HYALINE CASTS 0 /lpf (0-8); PH,URINE 7.5 (5.0-8.0); URINE APPEARANCE CLEAR; URINE BACTERIA 2.2 /hpf (NEGATIVE); URINE BILIRUBIN NEGATIVE (NEGATIVE); URINE COLOR YELLOW; URINE GLUCOSE (UA) NEGATIVE (NEGATIVE); URINE KETONE TRACE (NEGATIVE); URINE LEUK ESTERASE NEGATIVE (NEGATIVE); URINE NITRITE NEGATIVE (NEGATIVE); URINE PROTEIN NEGATIVE (NEGATIVE); URINE RBC 5 /hpf (0-4); URINE WBC 0 /hpf (0-5)
[2019-04-05] MEDS ORDERED: morphine CARPU-JECT 4 MG/1 ML DISP.SYRIN IVPUSH ONE (23:57)
[2019-04-06] MEDS ORDERED: morphine SULFATE 4 MG/ML VIAL ONE (00:16)
[2019-04-06] MEDS ORDERED: ONDANSETRON 4 MG/2 ML VIAL ONE (00:16)
--- NOTE | 2019-04-06 00:51 | PDOC ---
Documentation entered by Madhuri Jamil SCRIBE, acting as scribe for Tasneem Bermudez DO. Tasneem Bermudez DO: This documentation has been prepared by the Loulou paniagua Mackenzie, SCRIBE, under my direction and personally reviewed by me in its entirety. I confirm that the documentation accurately reflects all work, treatment, procedures, and medical decision making performed by me. Attending Attestation - Resident Resident Name: Fatou Lion - ED Attending Attestation I have performed the following: I have examined & evaluated the patient, The case was reviewed & discussed with the resident, I agree w/resident's findings & plan - HPI HPI: Patient is a 58 year old male with a significant PMH of kidney stones who presents to the ED with sharp right sided flank pain. Patient states pain is exactly the same as previous episodes of kidney stones, notes symptoms of nausea. 04/05/19 23:56 - Physicial Exam PE: agree with resident exam - Medical Decision Making 04/06/19 00:50 58-year-old male with right flank pain and no kidney stone CT scan is consistent with a right UVJ stone Patient has persistent pain and nausea/vomiting despite Zofran IV fluids and Toradol We'll admit to medical service with urology consult
--- NOTE | 2019-04-06 01:49 | HP ---
CHIEF COMPLAINT: N/V, Kidney stone, right flank pain PCP: Dr. Spicer HISTORY OF PRESENT ILLNESS: 58 year old male with PMHX of kidney stones, Hepatitis C, chronic back pain w/L4/L5 disc herniation, arrived to ED for complain N/V, right flank pain and kidney stone. Patient complains pain started suddenly, intermittent sharp Right sided pain (located in R testicle- groin travels to RLQ). Patient had same exact pain as prior kidney stone pain. Patient complains of poor po intake due to N/V all night. Patient denies CP, SOB, dizziness, hematuria, blood in stool, weakness, trauma. No previous record of prior lithotripsy or interventions for stones, always passed on own. No urologist as per patient The patient presents with a chief complaint of: R flank pain w/ n/v tonight. Seen here > 3 weeks ago for same, dx w/ 4x3mm distal R ureteral stone w/ hydro on CT. Was dc w/ meds, strainer and f/u but states he never f/u and did not notice stone at home. H/o renal stones w/ lithotripsy, HCV, chronic back pain ER course was notable for: (1)CT scan is consistent with a right UVJ stone - toradol and morphine given (2) c/o N&V zofran given (3)urology consult Recent Travel: No PAST MEDICAL HISTORY: Asthma, hepatitis C, Kidney stones, Depression, chronic low back pain PAST SURGICAL HISTORY: ? s/p lumbar spinal fusion Social History: Smoking:yes currently ( 14 cigarettes a day) Alcohol: NO Drugs: cannabis previous cocaine, heroin use, quit >10 years ago Family History: Father: , Mother: alive; Breast cancer Allergies: No Known Drug Allergies Allergy (Verified 04/06/19 00:52) HOME MEDICATIONS: Home Medications Medication Instructions Recorded Albuterol Sulfate Inhaler - 1 inh IH QID PRN 10/05/13 [Ventolin HFA Inhaler -] Baclofen [Lioresal -] 10 mg PO DAILY 12/17/18 Cyclobenzaprine HCl [Flexeril -] 5 mg PO TID PRN #12 tablet 12/17/18 Duloxetine HCl [Cymbalta -] 20 mg PO BID 12/17/18 Docusate Sodium [Colace -] 100 mg PO TID capsule 12/28/18 Acetaminophen [Tylenol .Regular 650 mg PO Q6H #30 tablet 12/29/18 Strength -] oxyCODONE SR [Oxycontin] 1 tab PO Q8H #15 tab.er.12h MDD 3 12/29/18 tabs Ibuprofen [Motrin -] 600 mg PO QID PRN #60 tablet 03/08/19 Ondansetron [Zofran Odt -] 4 mg SL TID #12 od.tablet 03/08/19 Tamsulosin HCl [Flomax] 0.4 mg PO DAILY #30 capsule 03/08/19 REVIEW OF SYSTEMS CONSTITUTIONAL: Absent: fever, chills, diaphoresis, generalized weakness, malaise, loss of appetite, weight change HEENT: Absent: rhinorrhea, nasal congestion, throat pain, throat swelling, difficulty swallowing, mouth swelling, ear pain, eye pain, visual changes CARDIOVASCULAR: Absent: chest pain, syncope, palpitations, irregular heart rate, lightheadedness , peripheral edema RESPIRATORY: Absent: cough, shortness of breath, dyspnea with exertion, orthopnea, wheezing, stridor, hemoptysis GASTROINTESTINAL: Absent: abdominal pain, abdominal distension, + nausea, vomiting, diarrhea, constipation, melena, hematochezia GENITOURINARY: Absent: dysuria, frequency, urgency, hesitancy, hematuria, flank pain, genital pain MUSCULOSKELETAL: back pain Absent: myalgia, arthralgia, joint swelling, neck pain SKIN: Absent: rash, itching, pallor HEMATOLOGIC/IMMUNOLOGIC: Absent: easy bleeding, easy bruising, lymphadenopathy, frequent infections ENDOCRINE: Absent: unexplained weight gain, unexplained weight loss, heat intolerance, cold intolerance NEUROLOGIC: Absent: headache, focal weakness or paresthesias, dizziness, unsteady gait, seizure, mental status changes, bladder or bowel incontinence PSYCHIATRIC: Absent: anxiety, depression, suicidal or homicidal ideation, hallucinations. PHYSICAL EXAMINATION Vital Signs - 24 hr 04/05/19 21:17 Temperature 98.0 F Pulse Rate 98 H Respiratory 16 Rate Blood Pressure 162/92 O2 Sat by Pulse 100 Oximetry (%) GENERAL: Awake, alert, and fully oriented, nauseous HEENT: NC/AT, EOMI, PERRLA, No JVD LUNGS: Breath sounds equal, clear to auscultation bilaterally. No wheezes, and no crackles HEART: Regular rate and rhythm, normal S1 and S2, no murmurs, rubs or gallops ABDOMEN: Soft, nontender, normoactive bowel sounds. No guarding, no rebound. No masses BACK: + R CVAT EXTREMITIES: Normal range of motion, no edema. No clubbing or cyanosis. No cords, erythema, or tenderness NEUROLOGICAL: Cranial nerves II through XII intact. 5/5 strength and sensation in all extremities, Normal speech, normal gait, normal cerebellar function SKIN: Warm, Dry, normal turgor, no rashes or lesions noted. Laboratory Results - last 24 hr 04/05/19 04/05/19 04/05/19 21:45 21:45 22:55 WBC 9.3 RBC 5.13 Hgb 15.8 Hct 46.7 MCV 91.0 MCH 30.8 MCHC 33.9 RDW 14.3 Plt Count 150 D MPV 9.2 Absolute Neuts (auto) 5.4 Neutrophils % 58.3 Lymphocytes % 28.0 D Monocytes % 10.2 Eosinophils % 2.0 D Basophils % 1.5 Nucleated RBC % 0 Sodium 140 Potassium 4.3 Chloride 108 H Carbon Dioxide 25 Anion Gap 7 L BUN 13.7 Creatinine 1.3 Est GFR (CKD-EPI)AfAm 69.71 Est GFR (CKD-EPI)NonAf 60.14 Random Glucose 127 H Calcium 8.8 Total Bilirubin 0.9 AST 65 H ALT 65 H Alkaline Phosphatase 127 H Total Protein 7.2 Albumin 3.8 Urine Color Yellow Urine Appearance Clear Urine pH 7.5 Ur Specific [place] 1.016 Urine Protein Negative Urine Glucose (UA) Negative Urine Ketones Trace H Urine Blood Trace Urine Nitrite Negative Urine Bilirubin Negative Urine Urobilinogen 1.0 Ur Leukocyte Esterase Negative Urine WBC (Auto) 0 Urine RBC (Auto) 5 Urine Casts (Auto) 0 U Epithel Cells (Auto) 0.7 Urine Bacteria (Auto) 2.2 ASSESSMENT/PLAN: 58 year old male with PMHX of kidney stones, Hepatitis C, chronic back pain w/L4 /L5 disc herniation, arrived to ED for complain N/V, right flank pain and kidney stone. Patient complains pain started suddenly, intermittent sharp Right sided pain (located in R testicle- groin travels to RLQ). #Renal Calculus #Hydronephrosis # Nausea & Vomiting CTAP: in comparison to 03/08/19, a 5x3mm calculus now visualized at R UV junction , previously positioned within distal ureter adjacent to UV junction. Hydronephrosis mild to moderate without obvious interval change. 2mm nonobstructing L renal calculus. -In ED s/p 1 L IVF; given Toradol and morphine for pain and Zofran for N/V - cbc: WBC 9.3 - CMP: bun/cr: 13.7/1.3 AST: 65; ALT: 65; Alkaline phos: 127 - UA: trace ketones, trace blood, 5 RBC, no sign of UTI - follow up repeat cbc, cmp - tend LFTs - follow up Urologist - pain management - continue with zofran Problem List - Problem (1) Renal colic on right side Code(s): N23 - UNSPECIFIED RENAL COLIC (2) Nausea & vomiting Code(s): R11.2 - NAUSEA WITH VOMITING, UNSPECIFIED (3) Lumbar disc herniation Code(s): M51.26 - OTHER INTERVERTEBRAL DISC DISPLACEMENT, LUMBAR REGION (4) S/P lumbar spinal fusion Code(s): Z98.1 - ARTHRODESIS STATUS Visit type - Emergency Visit Emergency Visit: Yes Care time: The patient presented to the Emergency Department on the above date and was hospitalized for further evaluation of their emergent condition. - New Patient This patient is new to me today: Yes Date on this admission: 04/06/19 - Critical Care Critical Care patient: No
[2019-04-06] MEDS ORDERED: ONDANSETRON 4 MG/2 ML VIAL IVPUSH PRN (01:51)
[2019-04-06] MEDS ORDERED: oxyCODONE HCL 5 MG TABLET PO PRN (01:51)
[2019-04-06] MEDS ORDERED: IBUPROFEN 600 MG TABLET (FP) PO PRN (01:51)
[2019-04-06] MEDS ORDERED: CYCLOBENZAPRINE HCL 5 MG TABLET PO PRN (01:55)
[2019-04-06] MEDS: DOCUSATE SODIUM 100 MG CAPSULE (FP) PO SCH ×3 (05:52→21:25)
[2019-04-06] MEDS ORDERED: morphine SULFATE 4 MG/ML VIAL IVPUSH PRN (06:23)
[2019-04-06] MEDS: TAMSULOSIN HCL 0.4 MG CAP PO SCH (08:57)
[2019-04-06] MEDS: DULoxetine HCL 20 MG CAPSULE.DR PO SCH ×2 (10:16→21:25)
[2019-04-06] MEDS: BACLOFEN 10 MG TABLET (FP) PO SCH (10:16)
--- NOTE | 2019-04-06 14:01 | EKG ---
Test Reason : Blood Pressure : / mmHG Vent. Rate : 065 BPM Atrial Rate : 065 BPM P-R Int : 120 ms QRS Dur : 072 ms QT Int : 396 ms P-R-T Axes : 104 060 061 degrees QTc Int : 411 ms POOR DATA QUALITY, INTERPRETATION MAY BE ADVERSELY AFFECTED NORMAL SINUS RHYTHM ANTEROSEPTAL INFARCT (CITED ON OR BEFORE 26-DEC-2018) ABNORMAL ECG WHEN COMPARED WITH ECG OF 26-DEC-2018 15:36, NO SIGNIFICANT CHANGE WAS FOUND Confirmed by JOSE M CHAPIN MD ([id number]) on 04/06/2019 2:01:09 PM Referred By: Confirmed By:JOSE M CHAPIN MD
--- NOTE | 2019-04-06 14:23 | PN ---
Progress Note, Physician Chief Complaint: patient seen and examined complaining of intermittent right inginual pain - Current Medication List Current Medications: Active Medications Baclofen (Lioresal -) 10 mg PO DAILY [facility] Last Admin: 04/06/19 10:16 Dose: 10 mg Cyclobenzaprine HCl (Cyclobenzaprine Hcl) 5 mg PO TID PRN PRN Reason: BACK PAIN Docusate Sodium (Colace -) 100 mg PO TID [facility] Last Admin: 04/06/19 05:52 Dose: 100 mg Duloxetine HCl (Cymbalta -) 20 mg PO BID [facility] Last Admin: 04/06/19 10:16 Dose: 20 mg Ibuprofen (Motrin -) 600 mg PO Q6H PRN PRN Reason: PAIN LEVEL 1-5 Morphine Sulfate (Morphine Sulfate) 4 mg IVPUSH Q6H PRN PRN Reason: PAIN LEVEL 6-10 Last Admin: 04/06/19 06:56 Dose: 4 mg Ondansetron HCl (Zofran Injection) 4 mg IVPUSH Q6H PRN PRN Reason: NAUSEA Stop: 04/12/19 23:59 Tamsulosin HCl (Flomax -) 0.4 mg PO DAILY@0830 [facility] Last Admin: 04/06/19 08:57 Dose: 0.4 mg - Objective Vital Signs: Vital Signs Temperature 98.7 F 04/06/19 10:10 Pulse Rate 73 04/06/19 10:10 Respiratory Rate 20 04/06/19 10:10 Blood Pressure 132/47 L 04/06/19 10:10 O2 Sat by Pulse Oximetry (%) 98 04/06/19 05:23 Constitutional: Yes: Calm Cardiovascular: Yes: Regular Rate and Rhythm, S1, S2 Respiratory: Yes: CTA Bilaterally Edema: No Neurological: Yes: Alert, Oriented Labs: CBC, BMP 04/05/19 21:45 04/05/19 21:45 Problem List - Problems (1) Renal colic on right side Assessment/Plan: ivf analgesic uroology consult 5/3 mm stone at Right UV junction Code(s): N23 - UNSPECIFIED RENAL COLIC
--- NOTE | 2019-04-06 17:49 | CON.GU ---
Consult - History of Present Illness History of Present Illness: 58 yo male with h/o nephrolithiaisis, now with 5mm RDU stone.NO fever/chills. Stone present x 1 month - Alcohol/Substance Use Hx Alcohol Use: No - Smoking History Smoking history: Unknown if ever smoked Have you smoked in the past 12 months: No Aproximately how many cigarettes per day: 10 Home Medications - Allergies Allergies/Adverse Reactions: Allergies Allergy/AdvReac Type Severity Reaction Status Date / Time No Known Drug Allergies Allergy Verified 04/06/19 00:52 - Home Medications Home Medications: Ambulatory Orders Albuterol Sulfate Inhaler - [Ventolin HFA Inhaler -] 1 inh IH QID PRN 10/05/13 Baclofen [Lioresal -] 10 mg PO DAILY 12/17/18 Cyclobenzaprine HCl [Flexeril -] 5 mg PO TID PRN #12 tablet 12/17/18 Duloxetine HCl [Cymbalta -] 20 mg PO BID 12/17/18 Docusate Sodium [Colace -] 100 mg PO TID capsule 12/28/18 Acetaminophen [Tylenol .Regular Strength -] 650 mg PO Q6H #30 tablet 12/29/18 oxyCODONE SR [Oxycontin] 1 tab PO Q8H #15 tab.er.12h MDD 3 tabs 12/29/18 Ibuprofen [Motrin -] 600 mg PO QID PRN #60 tablet 03/08/19 Ondansetron [Zofran Odt -] 4 mg SL TID #12 od.tablet 03/08/19 Tamsulosin HCl [Flomax] 0.4 mg PO DAILY #30 capsule 03/08/19 Review of Systems - Review of Systems Genitourinary: reports: Flank Pain Physical Exam- Vital Signs: Vital Signs Temperature 98.7 F 04/06/19 14:45 Pulse Rate 66 04/06/19 14:45 Respiratory Rate 18 04/06/19 14:45 Blood Pressure 102/59 L 04/06/19 14:45 O2 Sat by Pulse Oximetry (%) 98 04/06/19 05:23 Gastrointestinal: Yes: WNL Labs: CBC, BMP 04/05/19 21:45 04/05/19 21:45 Imaging - Results Cat Scan: Report Reviewed Problem List - Problems (1) Renal colic on right side Assessment/Plan: trial of conservative management with IVF hydration and flomax Code(s): N23 - UNSPECIFIED RENAL COLIC
[2019-04-06] MEDS: DEXTROSE 5%-0.45% SALINE 1,000 ML IV SCH (19:01)
[2019-04-07] MEDS: DEXTROSE 5%-0.45% SALINE 1,000 ML IV SCH ×2 (02:11→18:00)
[2019-04-07] MEDS: DOCUSATE SODIUM 100 MG CAPSULE (FP) PO SCH ×3 (05:53→21:44)
[2019-04-07 08:26] LABS: HEMATOCRIT 46.5 % (35.4-49); MCH 30.8 pg (25.7-33.7); MCHC 34.4 g/dl (32.0-35.9); MEAN CELL VOLUME 89.3 fl (80-96); MEAN PLT VOLUME 9.3 fl (7.5-11.1); PLATELET COUNT 153 K/MM3 (134-434); RBC 5.21 M/mm3 (4.00-5.60); WHITE BLOOD COUNT 6.8 K/mm3 (4.0-10.0)
[2019-04-07 08:44] LABS: ALBUMIN 3.6 g/dl (3.4-5.0); BILIRUBIN,TOTAL 1.6 mg/dL (0.2-1); CALCIUM 8.7 mg/dL (8.5-10.1); POTASSIUM 3.7 mmol/L (3.5-5.1); TOT PROT 7.2 g/dl (6.4-8.2)
[2019-04-07] MEDS: TAMSULOSIN HCL 0.4 MG CAP PO SCH (09:30)
[2019-04-07] MEDS: BACLOFEN 10 MG TABLET (FP) PO SCH (10:04)
[2019-04-07] MEDS: DULoxetine HCL 20 MG CAPSULE.DR PO SCH ×2 (10:04→21:44)
[2019-04-07] MEDS ORDERED: BUPIVACAINE HCL/PF 0.5% (5MG/ML) 10 ML VIAL ONE (10:12)
--- NOTE | 2019-04-07 12:21 | PN ---
Progress Note, Physician Chief Complaint: currently pain free going later to OR for stent placement - Current Medication List Current Medications: Active Medications Baclofen (Lioresal -) 10 mg PO DAILY [facility] Last Admin: 04/07/19 10:04 Dose: Not Given Cyclobenzaprine HCl (Cyclobenzaprine Hcl) 5 mg PO TID PRN PRN Reason: BACK PAIN Docusate Sodium (Colace -) 100 mg PO TID [facility] Last Admin: 04/07/19 05:53 Dose: Not Given Duloxetine HCl (Cymbalta -) 20 mg PO BID [facility] Last Admin: 04/07/19 10:04 Dose: Not Given Dextrose/Sodium Chloride (D5-1/2ns -) 1,000 mls @ 100 mls/hr IV ASDIR [facility] Last Admin: 04/07/19 02:11 Dose: 100 mls/hr Ibuprofen (Motrin -) 600 mg PO Q6H PRN PRN Reason: PAIN LEVEL 1-5 Morphine Sulfate (Morphine Sulfate) 4 mg IVPUSH Q6H PRN PRN Reason: PAIN LEVEL 6-10 Last Admin: 04/06/19 06:56 Dose: 4 mg Ondansetron HCl (Zofran Injection) 4 mg IVPUSH Q6H PRN PRN Reason: NAUSEA Stop: 04/12/19 23:59 Tamsulosin HCl (Flomax -) 0.4 mg PO DAILY@0830 [facility] Last Admin: 04/07/19 09:30 Dose: Not Given - Objective Vital Signs: Vital Signs Temperature 98.1 F 04/07/19 10:00 Pulse Rate 62 04/07/19 10:00 Respiratory Rate 17 04/07/19 10:00 Blood Pressure 128/72 04/07/19 10:00 O2 Sat by Pulse Oximetry (%) 98 04/06/19 21:00 Constitutional: Yes: Calm, Thin Cardiovascular: Yes: Regular Rate and Rhythm, S1, S2 Respiratory: Yes: CTA Bilaterally Gastrointestinal: Yes: Normal Bowel Sounds, Soft Edema: No Neurological: Yes: Alert, Oriented Labs: CBC, BMP 04/07/19 06:30 04/07/19 06:30 Problem List - Problems (1) Renal colic on right side Assessment/Plan: ivf NPO for ORtoday analgesic uroology consult [id number] FLomax 5/3 mm stone at Right UV junction Code(s): N23 - UNSPECIFIED RENAL COLIC (2) Elevated LFTs Assessment/Plan: liver sono Code(s): R94.5 - ABNORMAL RESULTS OF LIVER FUNCTION STUDIES
[2019-04-07] MEDS ORDERED: PROPOFOL 20 ML ONE (13:16)
[2019-04-07] MEDS ORDERED: SUCCINYLCHOLINE CHLORIDE 200 MG/10 ML SYRINGE ONE (13:16)
[2019-04-07] MEDS ORDERED: MIDAZOLAM HCL 2 MG/2 ML SINGLE DOSE VIAL ONE ×2 (13:17)
--- NOTE | 2019-04-07 13:30 | PN ---
Progress Note (short form) - Note Progress Note: currenlty pain free but pain has been intermittant for 1 month wishes to undergo stone extraction treatment options reviewed elects rt ureteroscopy/laser litho/stent placement R/B/A discussed Problem List - Problems (1) Renal colic on right side Code(s): N23 - UNSPECIFIED RENAL COLIC
[2019-04-07] MEDS ORDERED: ceFAZolin SODIUM 1 GM VIAL IVPB ONE (13:45)
[2019-04-07] MEDS ORDERED: KETOROLAC TROMETHAMINE 30 MG/1 ML VIAL ONE (13:55)
[2019-04-07] MEDS ORDERED: FUROSEMIDE 40 MG/4 ML INJECTABLE VIAL ONE (14:00)
--- NOTE | 2019-04-07 14:26 | OP ---
Operative Note - Note: Operative Date: 04/07/19 Pre-Operative Diagnosis: RDU stone Operation: URS/laser litho/stent Post-Operative Diagnosis: Same as Pre-op Surgeon: Lasha Sheth Anesthesia: General Specimens Removed: stone frags Operative Report Dictated: Yes
[2019-04-07] MEDS ORDERED: morphine SULFATE 4 MG/ML VIAL IVPUSH PRN (14:53)
[2019-04-07] MEDS ORDERED: IBUPROFEN 600 MG TABLET (FP) PO PRN (14:53)
[2019-04-07] MEDS ORDERED: ONDANSETRON 4 MG/2 ML VIAL IVPUSH PRN (14:53)
[2019-04-08 03:19] VITALS: TEMP 98.1
[2019-04-08] MEDS: DEXTROSE 5%-0.45% SALINE 1,000 ML IV SCH (03:22)
[2019-04-08] MEDS: DOCUSATE SODIUM 100 MG CAPSULE (FP) PO SCH (06:25)
--- NOTE | 2019-04-08 07:28 | OP ---
DATE OF OPERATION: DATE OF DICTATION: 04/07/2019 PREOPERATIVE DIAGNOSIS: Right distal ureteral stone. POSTOPERATIVE DIAGNOSIS: Right distal ureteral stone. PROCEDURE: Cystoscopy, ureteroscopy, laser lithotripsy, stone basketing, and stent placement. SURGEON: Lasha Sheth MD INDICATIONS: Patient is a 58-year-old male with an obstructing stone in the right distal ureter, who has had the stone in for approximately a month now. After reviewing treatment options, patient elected to undergo ureteroscopy, laser lithotripsy, and stent placement. He understood the risks of bleeding, infection, stricture formation, potential inability to break up the stone, potential need for additional procedures. DESCRIPTION OF PROCEDURE: After informed consent was obtained, patient was taken to the OR, placed supine on the OR table. After cardiac monitoring administered and general anesthesia was established, he was prepped and draped in dorsal lithotomy position. The rigid cystoscope was inserted into the urethra without difficulty. Anterior urethra was normal. Prostatic urethra with 3 cm visualized, no tumors or stones noted in the bladder. Attention was turned to the right ureteral orifice. It was intubated with a ureteral catheter and contrast was injected for retrograde pyelogram. There was hydronephrosis down to the level of the distal ureter, where stone was seen. Guidewire was advanced into the right renal pelvis. Alongside the guidewire, a semi-rigid ureteroscope was advanced into the distal ureter where a stone was seen impacted in the distal ureter. The ureteral wall was erythematous and narrowed in this area indicating possible reactive stricture. Using the 365 micron laser fiber, the stone was pulverized into fine dust of 1- to 2-mm fragments, and several of these fragments were removed with a Graspit and sent to Pathology for analysis. Repeat ureteroscopy revealed there ureteral stone fragments. Ureteroscope was then removed, and a 6-[place]ong[place] 26-cm double pigtail stent was then advanced over the remaining guidewire in a monorail fashion, and guidewire removed. Fluoroscopy confirmed this stent to be in good position. Patient was awoken from anesthesia and transferred to recovery room in stable condition. There were no complications. ESTIMATED BLOOD LOSS: Minimal. Lisandra [id number]
[2019-04-08] MEDS ORDERED: TAMSULOSIN HCL 0.4 MG CAP PO SCH (08:30)
[2019-04-08] MEDS: DULoxetine HCL 20 MG CAPSULE.DR PO SCH (09:08)
[2019-04-08 09:11] VITALS: BP 136/75; PULSE 61
[2019-04-08] MEDS ORDERED: BACLOFEN 10 MG TABLET (FP) PO SCH (10:00)
--- NOTE | 2019-04-08 13:52 | DS ---
Physical Examination Vital Signs: Vital Signs Temperature 98.1 F 04/08/19 02:00 Pulse Rate 61 04/08/19 09:10 Respiratory Rate 18 04/08/19 09:10 Blood Pressure 136/75 04/08/19 09:10 O2 Sat by Pulse Oximetry (%) 98 04/07/19 21:00 Findings/Remarks: 58 year old male with PMHX of kidney stones, Hepatitis C, chronic back pain w/L4 /L5 disc herniation, arrived to ED for complain N/V, right flank pain and kidney stone. Patient complains pain started suddenly, intermittent sharp Right sided pain (located in R testicle- groin travels to RLQ). Patient had same exact pain as prior kidney stone pain. Patient complains of poor po intake due to N/V all night. Patient denies CP, SOB, dizziness, hematuria, blood in stool, weakness, trauma. No previous record of prior lithotripsy or interventions for stones, always passed on own. No urologist as per patient The patient presents with a chief complaint of: R flank pain w/ n/v tonight. Seen here > 3 weeks ago for same, dx w/ 4x3mm distal R ureteral stone w/ hydro on CT. Was dc w/ meds, strainer and f/u but states he never f/u and did not notice stone at home. H/o renal stones w/ lithotripsy, HCV, chronic back pain Constitutional: Yes: Well Nourished, No Distress, Calm Cardiovascular: Yes: Regular Rate and Rhythm Respiratory: Yes: Regular Gastrointestinal: Yes: Normal Bowel Sounds, Soft Musculoskeletal: Yes: WNL Extremities: Yes: WNL Edema: No Peripheral Pulses WNL: Yes Neurological: Yes: Alert, Oriented Psychiatric: Yes: Alert, Oriented Labs: CBC, BMP 04/07/19 06:30 04/07/19 06:30 Discharge Summary Reason For Visit: CALCULUS OF KIDNEY,INTRACTABLE VOMITING Current Active Problems Elevated LFTs (Acute) Nausea & vomiting (Acute) Renal colic on right side (Acute) Hospital Course: Laboratory Last Values WBC 6.8 K/mm3 (4.0-10.0) 04/07/19 06:30 RBC 5.21 M/mm3 (4.00-5.60) 04/07/19 06:30 Hgb 16.0 GM/dL (11.7-16.9) 04/07/19 06:30 Hct 46.5 % (35.4-49) 04/07/19 06:30 MCV 89.3 fl (80-96) 04/07/19 06:30 MCH 30.8 pg (25.7-33.7) 04/07/19 06:30 MCHC 34.4 g/dl (32.0-35.9) 04/07/19 06:30 RDW 14.0 % (11.9-15.9) 04/07/19 06:30 Plt Count 153 K/MM3 (134-434) 04/07/19 06:30 MPV 9.3 fl (7.5-11.1) 04/07/19 06:30 Absolute Neuts (auto) 5.4 K/mm3 (1.5-8.0) 04/05/19 21:45 Neutrophils % 58.3 % (42.8-82.8) 04/05/19 21:45 Lymphocytes % 28.0 % (8-40) D 04/05/19 21:45 Monocytes % 10.2 % (3.8-10.2) 04/05/19 21:45 Eosinophils % 2.0 % (0-4.5) D 04/05/19 21:45 Basophils % 1.5 % (0-2.0) 04/05/19 21:45 Nucleated RBC % 0 % (0-0) 04/05/19 21:45 Sodium 138 mmol/L (136-145) 04/07/19 06:30 Potassium 3.7 mmol/L (3.5-5.1) 04/07/19 06:30 Chloride 104 mmol/L (98-107) 04/07/19 06:30 Carbon Dioxide 28 mmol/L (21-32) 04/07/19 06:30 Anion Gap 7 MMOL/L (8-16) L 04/07/19 06:30 BUN 13.0 mg/dL (7-18) 04/07/19 06:30 Creatinine 1.0 mg/dL (0.55-1.3) 04/07/19 06:30 Est GFR (CKD-EPI)AfAm 95.73 04/07/19 06:30 Est GFR (CKD-EPI)NonAf 82.60 04/07/19 06:30 Random Glucose 126 mg/dL (74-106) H 04/07/19 06:30 Calcium 8.7 mg/dL (8.5-10.1) 04/07/19 06:30 Total Bilirubin 1.6 mg/dL (0.2-1) H 04/07/19 06:30 AST 57 U/L (15-37) H 04/07/19 06:30 ALT 74 U/L (13-61) H 04/07/19 06:30 Alkaline Phosphatase 118 U/L (45-117) H 04/07/19 06:30 Total Protein 7.2 g/dl (6.4-8.2) 04/07/19 06:30 Albumin 3.6 g/dl (3.4-5.0) 04/07/19 06:30 Urine Color Yellow 04/05/19 22:55 Urine Appearance Clear 04/05/19 22:55 Urine pH 7.5 (5.0-8.0) 04/05/19 22:55 Ur Specific [place] 1.016 (1.010-1.035) 04/05/19 22:55 Urine Protein Negative (NEGATIVE) 04/05/19 22:55 Urine Glucose (UA) Negative (NEGATIVE) 04/05/19 22:55 Urine Ketones Trace (NEGATIVE) H 04/05/19 22:55 Urine Blood Trace (NEGATIVE) 04/05/19 22:55 Urine Nitrite Negative (NEGATIVE) 04/05/19 22:55 Urine Bilirubin Negative (NEGATIVE) 04/05/19 22:55 Urine Urobilinogen 1.0 mg/dL (0.2-1.0) 04/05/19 22:55 Ur Leukocyte Esterase Negative (NEGATIVE) 04/05/19 22:55 Urine WBC (Auto) 0 /hpf (0-5) 04/05/19 22:55 Urine RBC (Auto) 5 /hpf (0-4) 04/05/19 22:55 Urine Casts (Auto) 0 /lpf (0-8) 04/05/19 22:55 U Epithel Cells (Auto) 0.7 /HPF (0-5/HPF) 04/05/19 22:55 Urine Bacteria (Auto) 2.2 /hpf (NEGATIVE) 04/05/19 22:55 Microbiology 04/05/19 22:55 Urine - Urine Clean Catch Urine Culture - Final NO GROWTH OBTAINED Vital Signs Temp 98.1 F 04/08/19 02:00 Pulse 61 04/08/19 09:10 Resp 18 04/08/19 09:10 BP 136/75 04/08/19 09:10 Pulse Ox 98 04/07/19 21:00 Intake & Output 04/07/19 04/08/19 04/08/19 23:59 11:59 23:59 Intake Total 2150 1200 Output Total 1100 700 Balance 1050 500 Weight 61.235 kg Intake: IV 1500 1200 D5-1/2Ns - 1,000 ml @ 304 006 0481 mls/hr IV ASDIR ABENA Rx#: [id number] Oral 650 Output: Urine 1100 700 Void 600 700 Other: Voiding Method Toilet # Unmeasured Voids Void 2 Bowel Movement No No Height 6 ft 1 in Body Mass Index (BMI) 17.8 Condition: Stable - Instructions Referrals: Lasha Sheth MD [Staff Physician] - Disposition: HOME - Home Medications Comprehensive Discharge Medication List: Ambulatory Orders Albuterol Sulfate Inhaler - [Ventolin HFA Inhaler -] 1 inh IH QID PRN 10/05/13 Baclofen [Lioresal -] 10 mg PO DAILY 12/17/18 Cyclobenzaprine HCl [Flexeril -] 5 mg PO TID PRN #12 tablet 12/17/18 Duloxetine HCl [Cymbalta -] 20 mg PO BID 12/17/18 Docusate Sodium [Colace -] 100 mg PO TID capsule 12/28/18 Acetaminophen [Tylenol .Regular Strength -] 650 mg PO Q6H #30 tablet 12/29/18 oxyCODONE SR [Oxycontin] 1 tab PO Q8H #15 tab.er.12h MDD 3 tabs 12/29/18 Ibuprofen [Motrin -] 600 mg PO QID PRN #60 tablet 03/08/19 Ondansetron [Zofran Odt -] 4 mg SL TID #12 od.tablet 03/08/19 Tamsulosin HCl [Flomax -] 0.4 mg PO DAILY #30 capsule 03/08/19 Ibuprofen [Motrin -] 600 mg PO Q6H PRN tablet 04/08/19
--- NOTE | 2019-04-11 09:23 | PATH ---
Surgical Pathology Report Patient Name: LALI COATS Med. Rec. #: [id number] /Age/Gender: 1960 (Age: 58) / M Account: [id number] Location: [address] [place] [address]/[facility] Taken: 04/07/2019 Received: 04/10/2019 Reported: 04/11/2019 Physicians: Lasha Sheth M.D. Specimen(s) Received URETERAL STONE Clinical History Calculus of kidney Final Diagnosis URETERAL STONE, LASER LITHOTRIPSY AND STONE BASKETING: URETEROLITHIASIS. MACROSCOPIC DIAGNOSIS. Electronically Signed Raquel Weldon M.D. Gross Description Received fresh labeled "ureteral stone," are 2 [place], irregular calculi measuring 0.2 and 0.4 cm in greatest dimension. The specimen is sent for chemical analysis. /04/10/2019 saudi/04/10/2019
[2019-04-18 17:17] LABS: CA OXALATE MONOHYDR. 75 % (.)
== END 2019-04-08 14:21 | disposition home or self-care (01) | DRG 659 ==
LOC: JER 21:09 → JERBED 04-06 00:26 → J5S 04-06 03:58
PROVIDERS: ADMIT Family Medicine; ATTEND Family Medicine
PROC: 0TC68ZZ Extirpation of Matter from Right Ureter, Via Natural or Artificial Opening Endoscopic (ICD-10-PCS; principal; 2019-04-07 12:30)
PROC: 0T768DZ Dilation of Right Ureter with Intraluminal Device, Via Natural or Artificial Opening Endoscopic (ICD-10-PCS; 2019-04-07 12:30)
DX: N13.2 Hydronephrosis with renal and ureteral calculous obstruction (principal); E43 Unspecified severe protein-calorie malnutrition; Z68.1 Body mass index [BMI] 19.9 or less, adult; M51.26 Other intervertebral disc displacement, lumbar region; R94.5 Abnormal results of liver function studies; B19.20 Unspecified viral hepatitis C without hepatic coma; F32.9 Major depressive disorder, single episode, unspecified; J44.9 Chronic obstructive pulmonary disease, unspecified
CPT/HCPCS: 36415; 74176-TC; 76000-TC-FY; 76705-TC; 80053; 81003; 82360; 85025; 85027; 87086; 88300-TC; 93005; 93010; 94760; 99283-25; J0475; J7030

== ENCOUNTER 2021-04-30 08:46 | Emergency (ER) | payer OTHER ==
[2021-04-30 08:55] VITALS: BP 103/67; PULSE 78; TEMP 97; BMI 17.8
[2021-04-30] MEDS ORDERED: KETOROLAC TROMETHAMINE 30 MG/1 ML VIAL IM ONE (09:25)
[2021-04-30] MEDS ORDERED: METHOCARBAMOL 500 MG TABLET PO ONE (09:25)
[2021-04-30] MEDS ORDERED: KETOROLAC TROMETHAMINE 30 MG/1 ML VIAL ONE (09:33)
[2021-04-30] MEDS ORDERED: METHOCARBAMOL 500 MG TABLET ONE (09:33)
== END 2021-04-30 10:45 | disposition home or self-care (01) ==
LOC: JER 08:46
PROC: 3E023GC Introduction of Other Therapeutic Substance into Muscle, Percutaneous Approach (ICD-10-PCS; principal; 2021-04-30)
DX: M54.42 Lumbago with sciatica, left side (principal)
CPT/HCPCS: 99284-25

== ENCOUNTER 2022-04-07 15:23 | Emergency (ER) | payer OTHER ==
[2022-04-07 15:42] VITALS: BP 117/73; PULSE 84; RESP 20; TEMP 98.1; BMI 17.9
[2022-04-07] MEDS ORDERED: KETOROLAC TROMETHAMINE 30 MG/1 ML VIAL ONE (16:56)
[2022-04-07] MEDS ORDERED: KETOROLAC TROMETHAMINE 30 MG/1 ML VIAL IM ONE (16:56)
== END 2022-04-07 18:46 | disposition home or self-care (01) ==
LOC: JERFT 15:23
PROC: 3E0233Z Introduction of Anti-inflammatory into Muscle, Percutaneous Approach (ICD-10-PCS; principal; 2022-04-07)
DX: S93.491A Sprain of other ligament of right ankle, initial encounter (principal); W22.8XXA Striking against or struck by other objects, initial encounter; X50.0XXA Overexertion from strenuous movement or load, initial encounter
CPT/HCPCS: 73610-TC-RT-FY; 73630-TC-RT-FY; 96372; 99284-25

== ENCOUNTER 2025-04-29 10:02 | Inpatient (IN) | payer OTHER ==
[2025-04-29 10:14] VITALS: BMI 26.8
[2025-04-29] MEDS: morphine CARPU-JECT 4 MG/1 ML DISP.SYRIN IVPUSH ONE (10:25)
[2025-04-29] MEDS: SODIUM CHLORIDE 1,000 ML IV STA (10:40)
[2025-04-29 10:44] LABS: ABSOLUTE IMMATURE GRANULOCYTES 0.04 x10^3/uL (0.0-0.031); BASOPHILS # 0.05 x10^3/uL (0.01-0.08); EOSINOPHIL % 1.6 % (0.8-7.0); EOSINOPHILS # 0.14 x10^3/uL (0.04-0.54); MCHC 32.5 g/dl (32.3-36.5); MEAN CELL VOLUME 93.1 fl (79.0-92.2); MEAN PLT VOLUME 11.0 fl (9.4-12.4); MONOCYTE # 0.53 x10^3/uL (0.30-0.82); MONOCYTE % 6.1 % (5.3-12.2); RDW 13.0 % (12.2-16.4)
[2025-04-29 11:12] LABS: GLUCOSE,RANDOM 132.0 mg/dL (74-106); TOT PROT 7.6 g/dl (6.4-8.2)
[2025-04-29 11:13] LABS: CO2 28.0 mmol/L (21-32)
[2025-04-29 11:15] LABS: ALK PHOS 132.0 U/L (40-150)
[2025-04-29 11:17] LABS: SGOT/AST 43.0 U/L (5-34); SGPT/ALT 45.0 U/L (0-55)
[2025-04-29 11:18] LABS: CREATININE 1.0 mg/dL (0.55-1.3)
[2025-04-29 12:41] LABS: HIV INTERPRETATION NEGATIVE (NEGATIVE)
[2025-04-29 13:27] LABS: HCV DIAGNOSTIC IN-HOUSE W/RFLX REACTIVE (NONREACTIVE)
[2025-04-29] MEDS ORDERED: KETOROLAC TROMETHAMINE 15 MG/ML VIAL IM PRN (14:05)
[2025-04-29] MEDS ORDERED: ACETAMINOPHEN 1000 MG/100 ML BAG IVPB PRN (14:05)
[2025-04-29] MEDS ORDERED: morphine CARPU-JECT 2 MG/1 ML DISP.SYRIN IVPUSH PRN (14:14)
[2025-04-29] MEDS ORDERED: ACETAMINOPHEN INJECTION 100 ML ONE (14:27)
[2025-04-29] MEDS ORDERED: KETOROLAC TROMETHAMINE 15 MG/ML VIAL ONE (14:27)
[2025-04-29] MEDS: ACETAMINOPHEN 1000 MG/100 ML BAG IVPB PRN (14:39)
[2025-04-29] MEDS: KETOROLAC TROMETHAMINE 15 MG/ML VIAL IM PRN (14:40)
[2025-04-29 14:51] LABS: INR 1.17 (0.83-1.09); PROTHROMBIN TIME (PATIENT) 12.9 SEC (9.7-13.0)
[2025-04-30 08:29] LABS: ABSOLUTE IMMATURE GRANULOCYTES 0.03 x10^3/uL (0.0-0.031); BASOPHILS # 0.03 x10^3/uL (0.01-0.08); EOSINOPHIL % 0.3 % (0.8-7.0); EOSINOPHILS # 0.03 x10^3/uL (0.04-0.54); MCHC 33.0 g/dl (32.3-36.5); MEAN CELL VOLUME 91.5 fl (79.0-92.2); MEAN PLT VOLUME 11.7 fl (9.4-12.4); MONOCYTE # 0.90 x10^3/uL (0.30-0.82); MONOCYTE % 10.2 % (5.3-12.2); RDW 12.8 % (12.2-16.4)
[2025-04-30] MEDS ORDERED: ACETAMINOPHEN 1000 MG/100 ML BAG IVPB PRN (08:41)
[2025-04-30 08:45] LABS: GLUCOSE,RANDOM 132.0 mg/dL (74-106)
[2025-04-30 08:47] LABS: CO2 22.0 mmol/L (21-32)
[2025-04-30 08:51] LABS: CREATININE 0.93 mg/dL (0.55-1.3)
[2025-04-30 09:24] LABS: INR 1.21 (0.83-1.09); PROTHROMBIN TIME (PATIENT) 13.2 SEC (9.7-13.0)
[2025-04-30 09:27] LABS: ACTIVATED PTT 31.3 SECONDS (25.2-36.5)
[2025-04-30] MEDS: ENOXAPARIN NA (PORCINE) 40 MG/0.4 ML DISP.SYRIN SQ ONE (09:39)
[2025-05-01 08:01] LABS: MCHC 33.3 g/dl (32.3-36.5); MEAN CELL VOLUME 92.2 fl (79.0-92.2); MEAN PLT VOLUME 11.1 fl (9.4-12.4); RDW 12.4 % (12.2-16.4)
[2025-05-01 08:51] LABS: INR 1.13 (0.83-1.09); PROTHROMBIN TIME (PATIENT) 12.5 SEC (9.7-13.0)
[2025-05-01 08:54] LABS: ACTIVATED PTT 31.1 SECONDS (25.2-36.5)
[2025-05-01 09:17] LABS: ALK PHOS 89.0 U/L (45-117); CO2 24.0 mmol/L (21-32); CREATININE 0.8 mg/dl (0.6-1.3); GLUCOSE,RANDOM 109.0 mg/dl (74-106); SGOT/AST 40.0 U/L (15-37); SGPT/ALT 35.0 U/L (7-52); TOT PROT 6.5 g/dl (6.4-8.2)
[2025-05-01] MEDS ORDERED: PROPOFOL 20 ML ONE ×3 (10:25→12:44)
[2025-05-01] MEDS ORDERED: MIDAZOLAM HCL 2 MG/2 ML SINGLE DOSE VIAL ONE (10:26)
[2025-05-01] MEDS ORDERED: ONDANSETRON 4 MG/2 ML VIAL IVPUSH PRN ×2 (11:09→14:33)
[2025-05-01] MEDS ORDERED: LACTATED RINGERS SOLUTION 1,000 ML IV SCH (11:15)
[2025-05-01] MEDS ORDERED: BUPIVACAINE HCL/PF 0.5% (5 MG/ML) 30 ML VIAL IJ ONE (11:17)
[2025-05-01] MEDS ORDERED: DEXAMETHASONE SOD PHOSPHATE 10 MG/1 ML VIAL ONE (11:17)
[2025-05-01] MEDS ORDERED: BUPIVACAINE HCL/PF 0.5% (5MG/ML) 10 ML VIAL ONE (11:55)
[2025-05-01] MEDS ORDERED: DEXAMETHASONE SOD PHOSPHATE 4 MG/1 ML VIAL ONE (12:15)
[2025-05-01] MEDS ORDERED: ONDANSETRON 4 MG/2 ML VIAL ONE (12:15)
[2025-05-01] MEDS ORDERED: TRANEXAMIC ACID 1000 MG/10 ML VIAL ONE (12:19)
[2025-05-01] MEDS ORDERED: VANCOMYCIN 1,000 MG VIAL (RESTRICTED TO ID ONLY) ONE (12:40)
[2025-05-01] MEDS ORDERED: BUPIVICAINE 0.25%/MORPH PF/KETOROLAC - 51ML DISP.SYRINGE IA ONE (13:40)
[2025-05-01] MEDS ORDERED: MAG HYDROX/AL HYDROX/SIMETH 30 ML UNIT-DOSE CUP PO PRN (14:33)
[2025-05-01] MEDS: ACETAMINOPHEN 1000 MG/100 ML BAG IVPB ONE (14:35)
[2025-05-01] MEDS ORDERED: ACETAMINOPHEN INJECTION 100 ML ONE (14:35)
[2025-05-01] MEDS: LACTATED RINGERS SOLUTION 1,000 ML IV SCH (15:00)
[2025-05-01] MEDS: ACETAMINOPHEN 500 MG TABLET (FP) PO SCH (18:05)
[2025-05-01] MEDS: CEFAZOLIN SODIUM 2 GM in DEXTROSE 5%-WATER - 50 ML IVPB SCH (20:02)
[2025-05-01] MEDS: oxyCODONE HCL 10 MG SUSTAINED ACTING TABLET PO SCH (21:14)
[2025-05-01] MEDS: GABAPENTIN 300 MG CAPSULE PO SCH (21:14)
[2025-05-01] MEDS: SENNOSIDES/DOCUSATE COMBO (SENNA PLUS) TABLET (UD) PO SCH (21:14)
[2025-05-02 08:24] LABS: MCHC 33.7 g/dl (32.3-36.5); MEAN CELL VOLUME 90.9 fl (79.0-92.2); MEAN PLT VOLUME 11.7 fl (9.4-12.4); RDW 12.2 % (12.2-16.4)
[2025-05-02] MEDS: MULTIVITAMINS (DAILY MVI) TABLET (FP) PO SCH (09:15)
[2025-05-02] MEDS: PANTOPRAZOLE 40 MG TABLET PO SCH (09:15)
[2025-05-02] MEDS: ASPIRIN COATED 81 MG TABLET.EC PO SCH (09:15)
[2025-05-02 09:20] LABS: ALK PHOS 76.0 U/L (45-117); CO2 27.0 mmol/L (21-32); CREATININE 0.8 mg/dl (0.6-1.3); GLUCOSE,RANDOM 220.0 mg/dl (74-106); SGOT/AST 64.0 U/L (15-37); SGPT/ALT 39.0 U/L (7-52); TOT PROT 6.1 g/dl (6.4-8.2)
[2025-05-02] MEDS: INSULIN ASPART SLIDING SCALE (NOVOLOG) 1 VIAL SQ SCH (11:53)
[2025-05-03 02:08] VITALS: RESP 18
[2025-05-03 08:06] LABS: MCHC 33.6 g/dl (32.3-36.5); MEAN CELL VOLUME 92.3 fl (79.0-92.2); MEAN PLT VOLUME 11.5 fl (9.4-12.4); RDW 12.4 % (12.2-16.4)
[2025-05-03 08:25] VITALS: BP 107/64; PULSE 67; TEMP 98.4
== END 2025-05-03 11:30 | disposition home or self-care (01) | DRG 301 ==
LOC: JER 10:02 → JERBED 14:48 → J7W 18:31 → FM/S 04-30 18:47
PROVIDERS: ADMIT Internal Medicine
PROC: 0SRB0J9 Replacement of Left Hip Joint with Synthetic Substitute, Cemented, Open Approach (ICD-10-PCS; principal; 2025-05-01 12:39)
DX: S72.012A Unspecified intracapsular fracture of left femur, initial encounter for closed fracture (principal); J43.9 Emphysema, unspecified; I10 Essential (primary) hypertension; M48.02 Spinal stenosis, cervical region; E78.5 Hyperlipidemia, unspecified; K21.9 Gastro-esophageal reflux disease without esophagitis; V23.49XA Other motorcycle driver injured in collision with car, pick-up truck or van in traffic accident, initial encounter; Y93.89 Activity, other specified; Y92.89 Other specified places as the place of occurrence of the external cause; Y99.8 Other external cause status; F17.210 Nicotine dependence, cigarettes, uncomplicated
CPT/HCPCS: 36415; 70450-TC; 71045-TC-FY; 72125-TC; 72170-TC-FY; 73502-TC-LT-FY; 73552-TC-LT-FY; 73562-TC-LT-FY; 73590-TC-LT-FY; 73610-TC-LT-FY; 73630-TC-LT; 73700-TC-RT; 74177-TC; 80048; 80053; 82550; 82962; 83735; 84484; 85025; 85027; 85610; 85730; 86803; 86850; 86900; 86901; 87389; 87522; 88305-TC; 88311-TC; 88342-TC; 93005; 93010; 94760; 97010-GP; 97116-GP; 97162-GP; 99285-25; C1713; C1776; J1100; Q9967